=== PATIENT | female | born 1995 | race Hispanic/Latino ===

== ENCOUNTER 2019-03-31 19:17 | Emergency (ER) | payer BC ==
[2019-03-31 20:08] LABS: Absolute Lymphocytes (CBC) 2.6 K/uL (0.7-4.9); Basophils % 0.3 % (0-1.3); Hematocrit 37.5 % (36.0-45.0); Lymphocytes % 24.3 % (15.3-44.8); MPV 8.4 fL (7.6-11.3); RBC Red Blood Cell Count 4.65 M/uL (3.86-4.86)
[2019-03-31 20:12] LABS: Urine Blood 1+ (NEG); Urine Glucose NEGATIVE (NEG); Urine Protein NEGATIVE (NEG); Urine Specific Gravity 1.015 (1.005-1.030)
[2019-03-31 20:45] LABS: BUN Blood Urea Nitrogen 11 mg/dL (7-18); Bicarbonate 24 mmol/L (21-32); Glucose Level 99 mg/dL (74-106); HCG, Quantitative 31316 mIU/mL (1-3); Potassium 3.7 mmol/L (3.5-5.1); Sodium Level 138 mmol/L (136-145)
--- NOTE | 2019-03-31 20:49 | ER ---
Nurse's Notes [facility] Name: Leah Izquierdo Age: 24 yrs Sex: Female : 1995 Arrival Date: 03/31/2019 Time: 19:18 Bed 28 Private MD: Diagnosis: Less than 8 weeks gestation of ;Other ovarian cysts Presentation: 03/31 19:30 Presenting complaint: Mother states: "She's 7 weeks and she has a lot of back aj1 pain that goes around to the front." Reports LLQ pain and left low back pain for the past week that has gotten progressively worse. Denies vaginal bleeding or discharge. States that she has some spotting one week ago but it has resolved. She was seen by Dr. Davidson and was told it was normal. Reports diarrhea yesterday but none today. Denies vomiting. Transition of care: patient was not received from another setting of care. Onset of symptoms was March 2019. Risk Assessment: Do you want to hurt yourself or someone else? Patient reports no desire to harm self or others. Initial Sepsis Screen: Does the patient meet any 2 criteria? No. Patient's initial sepsis screen is negative. Does the patient have a suspected source of infection? No. Patient's initial sepsis screen is negative. Care prior to arrival: None. 19:30 Method Of Arrival: Ambulatory aj1 19:30 Acuity: KILO 3 aj1 Triage Assessment: 19:33 General: Appears in no apparent distress. comfortable, Behavior is calm, cooperative, aj1 appropriate for age. Pain: Complains of pain in left low back and left lower quadrant Pain currently is 7 out of 10 on a pain scale. at worst was 9 out of 10 on a pain scale. Neuro: Level of Consciousness is awake, alert, obeys commands. Cardiovascular: Patient's skin is warm and dry. Respiratory: Airway is patent Respiratory effort is even, unlabored, Respiratory pattern is regular, symmetrical. Musculoskeletal: Range of motion: intact in all extremities. 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 - Social history:: Smoking status: Patient/guardian denies using tobacco. - Ebola Screening: : Patient denies travel to an Ebola-affected area in the 21 days before illness onset. Screenin:45 Abuse screen: Denies threats or abuse. Denies injuries from another. Nutritional rv screening: No deficits noted. Tuberculosis screening: No symptoms or risk factors identified. Fall Risk None identified. Assessment: 20:44 General: Appears in no apparent distress. comfortable, Behavior is calm, cooperative. rv Pain: Complains of pain in left low back. Neuro: Level of Consciousness is awake, alert, obeys commands, Oriented to person, place, time, situation. Cardiovascular: Patient's skin is warm and dry. Respiratory: Airway is patent. GI: No signs and/or symptoms were reported involving the gastrointestinal system. : No signs and/or symptoms were reported regarding the genitourinary system. EENT: No signs and/or symptoms were reported regarding the EENT system. Derm: Skin is intact. Musculoskeletal: No signs and/or symptoms reported regarding the musculoskeletal system. 21:01 Reassessment: DANILO TALKED TO THE PATIENT AND THE FAMILY AT BEDSIDE, EXPLAINED THE rv RESULTS AND PLAN OF CARE AFTER DISCHARGE. FAMILY DEMANDED TO TALKED TO THE DOCTOR. 22:00 Reassessment: DR MISTRY TALKED TO THE PATIENT AND RELATIVES AT BEDSIDE. DECIDED TO rv RUN URINE MICROSCOPY AND GIVE PATIENT A BOLUS OF FLUID. PATIENT AGREED. 22:35 Reassessment: Reassessment: URINE MICROSCOPY CAME BACK NORMAL. DR MISTRY DISCHARGED rv PATIENT AFTER EXPLAINING THE RESULT. Vital Signs: 19:33 BP 119 / 70; Pulse 79; Resp 18; Temp 98.9; Pulse Ox 98% on R/A; Height 5 ft. 5 in. (166 aj1 cm) (R); Pain 7/10; 21:06 BP 122 / 78; Pulse 79; Resp 15; Pulse Ox 100% on R/A; rv ED Course: 19:18 Patient arrived in ED. am2 19:32 Triage completed. aj1 19:33 Danilo Kingston FNP-C [facility]. kb 19:33 Antoine Rios MD is Attending Physician. kb 19:33 Arm band placed on Patient placed in an exam room. aj1 19:50 Inserted saline lock: 20 gauge in left antecubital area, using aseptic technique. Blood rv collected. 19:53 Dipak Lea, RN is Primary Nurse. rv 20:46 Patient has correct armband on for positive identification. Bed in low position. Call rv light in reach. Side rails up X 1. Pulse ox on. NIBP on. 21:36 Attending Physician role handed off by Antoine Rios MD [facility] 21:36 Mark Mistry MD is Attending Physician. messi 22:36 No provider procedures requiring assistance completed. IV discontinued, intact, rv bleeding controlled, No redness/swelling at site. Administered Medications: 22:02 Drug: NS 0.9% 1000 ml Route: IV; Rate: 1 bolus; Site: left antecubital; rv 22:34 Follow up: IV Status: Completed infusion rv Outcome: 20:49 Discharge ordered by . kb 22:36 Discharged to home ambulatory, with family. rv 22:36 Condition: good 22:36 Discharge instructions given to patient, family, friend, Instructed on Demonstrated understanding of instructions, follow-up care. 22:37 Patient left the ED. rv Signatures: Danilo Kingston, TERRAZZO MECHANIC-C TERRAZZO MECHANIC-Huong Johnson, RN RN aj1 Mark Mistry MD MD cha Moreno, Amanda am2 Dipak Lea, RN RN rv Corrections: (The following items were deleted from the chart) 21:06 21:04 BP 117 / 68; Pulse 91bpm; Resp 15bpm; Pulse Ox 97% RA; rv rv
--- NOTE | 2019-03-31 20:50 | RAD REPORT ---
EXAM DESCRIPTION: US - Transvaginal Study Probe - 03/31/2019 8:41 pm CLINICAL HISTORY: ABD CRAMPING, COMPARISON: No comparisons FINDINGS: A single gestational sac is seen within the uterus. The shape of the sac is within normal limits for gestational age. Within the sac is a single pole with crown-rump length of 8 mm, cor relating to estimated gestational age of 6 weeks 5 days. Estimated date of delivery is 11/19/2019. Heart rate is 139 BPM.. The placenta is not yet developed due to early gestational age. The maternal adnexa and ovaries are within normal limits. Normal Doppler blood flow was demonstrated to both ovaries. IMPRESSION: Single live early intrauterine gestation with estimated gestational age of 6 weeks 5 day s, MELODY 11/19/2019. No unusual or unexpected finding.
--- NOTE | 2019-03-31 20:50 | EDPHYS ---
Physician Documentation [facility] Name: Leah Izquierdo Age: 24 yrs Sex: Female : 1995 Arrival Date: 03/31/2019 Time: 19:18 Bed 28 Private MD: ED Physician Mark Magdaleno HPI: 03/31 20:47 This 24 yrs old Female presents to ER via Ambulatory with complaints of Back kb Pain - 7 wks preg. 20:47 The patient presents to the emergency department with abdominal pain, of the left lower kb quadrant. The estimated gestational age is 7 weeks. course: care: private OB physician, Dr. chandra. Previous pregnancies: in previous pregnancies patient has had. Associated signs and symptoms: Pertinent positives: abdominal pain, Pertinent negatives: vaginal bleeding. The patient has not experienced similar symptoms in the past. The patient has not recently seen a physician. OUTSIDE PARTS SALESMAN: 19:33 LMP 02/05/2019 aj1 20:47 2, 0, Living 1 kb Historical: - Allergies: 19:33 No Known Allergies; aj1 - Home Meds: 19:33 Vitamin Oral tab 1 tab once daily [Active]; aj1 - PMHx: 19:33 None; aj1 - PSHx: 19:33 ; aj1 - Immunization history:: Flu vaccine status is unknown. - Social history:: Smoking status: Patient/guardian denies using tobacco. - Ebola Screening: : Patient denies travel to an Ebola-affected area in the 21 days before illness onset. ROS: 20:46 Constitutional: Negative for fever, chills, and weight loss, Neck: Negative for injury, kb pain, and swelling, Cardiovascular: Negative for chest pain, palpitations, and edema, Respiratory: Negative for shortness of breath, cough, wheezing, and pleuritic chest pain, Back: Negative for injury and pain, : Negative for injury, bleeding, discharge, and swelling, MS/Extremity: Negative for injury and deformity, Skin: Negative for injury, rash, and discoloration, Neuro: Negative for headache, weakness, numbness, tingling, and seizure. 20:46 Abdomen/GI: Positive for abdominal pain. Exam: 20:46 Constitutional: This is a well developed, well nourished patient who is awake, alert, kb and in no acute distress. Head/Face: Normocephalic, atraumatic. Neck: Trachea midline, no thyromegaly or masses palpated, and no cervical lymphadenopathy. Supple, full range of motion without nuchal rigidity, or vertebral point tenderness. No Meningismus. Chest/axilla: Normal chest wall appearance and motion. Nontender with no deformity. No lesions are appreciated. Cardiovascular: Regular rate and rhythm with a normal S1 and S2. No gallops, murmurs, or rubs. Normal PMI, no JVD. No pulse deficits. Respiratory: Lungs have equal breath sounds bilaterally, clear to auscultation and percussion. No rales, rhonchi or wheezes noted. No increased work of breathing, no retractions or nasal flaring. Back: No spinal tenderness. No costovertebral tenderness. Full range of motion. Skin: Warm, dry with normal turgor. Normal color with no rashes, no lesions, and no evidence of cellulitis. MS/ Extremity: Pulses equal, no cyanosis. Neurovascular intact. Full, normal range of motion. Neuro: Awake and alert, GCS 15, oriented to person, place, time, and situation. Cranial nerves II-XII grossly intact. Motor strength 5/5 in all extremities. Sensory grossly intact. Cerebellar exam normal. Normal gait. 20:46 Abdomen/GI: Inspection: abdomen appears normal, Bowel sounds: normal, in all quadrants, Palpation: soft, in all quadrants, mild abdominal tenderness, in the left lower quadrant. Vital Signs: 19:33 BP 119 / 70; Pulse 79; Resp 18; Temp 98.9; Pulse Ox 98% on R/A; Height 5 ft. 5 in. (166 aj1 cm) (R); Pain 7/10; 21:06 BP 122 / 78; Pulse 79; Resp 15; Pulse Ox 100% on R/A; rv MDM: 19:35 Patient medically screened. kb 20:46 Data reviewed: vital signs, nurses notes. Data interpreted: Pulse oximetry: on room air kb is 98 %. Interpretation: normal. Counseling: I had a detailed discussion with the patient and/or guardian regarding: the historical points, exam findings, and any diagnostic results supporting the discharge/admit diagnosis, lab results, radiology results, the need for outpatient follow up, an OB/Gyne specialist, to return to the emergency department if symptoms worsen or persist or if there are any questions or concerns that arise at home. 03/31 19:36 Order name: Quantitative Hcg 03/31 19:36 Order name: Abo/rh Typing 03/31 19:36 Order name: Basic Metabolic Panel 03/31 19:36 Order name: CBC with Diff 03/31 20:02 Order name: Urine Dipstick--Ancillary (enter results) [facility] 03/31 20:10 Order name: CBC with Automated Diff; Complete Time: 20:07 EDPA 03/31 20:12 Order name: Urine --Ancillary (enter results) [facility] 03/31 20:13 Order name: Urine Dipstick-Ancillary; Complete Time: 20:10 [facility] 03/31 20:38 Order name: ABO/RH typing; Complete Time: 20:37 [facility] 03/31 20:46 Order name: Basic Metabolic Panel; Complete Time: 20:42 EDPA 03/31 20:46 Order name: HCG, Quantitative; Complete Time: 20:42 [facility] 03/31 21:48 Order name: Urine Microscopic Only; Complete Time: 22:16 [facility] 03/31 22:18 Order name: Urine Culture [facility] 03/31 19:36 Order name: Urine Dipstick-Ancillary (obtain specimen); Complete Time: 20:03 03/31 19:36 Order name: Urine Test (obtain specimen); Complete Time: 20:03 03/31 19:36 Order name: IV Saline Lock; Complete Time: 20:03 03/31 19:36 Order name: Labs collected and sent; Complete Time: 20:03 03/31 19:36 Order name: NPO; Complete Time: 19:38 03/31 20:09 Order name: US Transvaginal Study (Probe) 03/31 20:56 Order name: US; Complete Time: 20:55 EDMS Administered Medications: 22:02 Drug: NS 0.9% 1000 ml Route: IV; Rate: 1 bolus; Site: left antecubital; rv 22:34 Follow up: IV Status: Completed infusion rv Disposition: 04/01 08:05 Co-signature as Attending Physician, Mark LEES I agree with the assessment and kdr plan of care. Disposition: 03/31/19 20:49 Discharged to Home. Impression: Less than 8 weeks gestation of , Other ovarian cysts. - Condition is Stable. - Discharge Instructions: First Trimester of , Wyus-pf-Abju, Ovarian Cyst, Fvlr-[id number]-Omti. - Medication Reconciliation Form, Thank You Letter, Antibiotic Education, Prescription Opioid Use form. - Follow up: Emergency Department; When: As needed; Reason: Worsening of condition. Follow up: Private Physician; When: 2 - 3 days; Reason: Recheck today's complaints, Continuance of care, Re-evaluation by your physician. Signatures: Dispatcher [employer] EDMS Dede Kingston, JOINT FINISHER-C JOINT FINISHER-CkHuong Stock, RN RN aj1 Mark Magdaleno MD MD cha Rittger, Kevin, MD MD kdr Vicente, Ronaldo RN RN rv Corrections: (The following items were deleted from the chart) 03/31 22:37 20:49 03/31/2019 20:49 Discharged to Home. Impression: Less than 8 weeks gestation of rv ; Other ovarian cysts. Condition is Stable. Forms are Medication Reconciliation Form, Thank You Letter, Antibiotic Education, Prescription Opioid Use. Follow up: Emergency Department; When: As needed; Reason: Worsening of condition. Follow up: Private Physician; When: 2 - 3 days; Reason: Recheck today's complaints, Continuance of care, Re-evaluation by your physician. kb
[2019-03-31] MEDS ORDERED: NA CHLORIDE 0.9% 1,000 ML ONE (21:59)
[2019-03-31 22:15] LABS: Urine Bacteria 20-50 /HPF (<20); Urine Culture Reflex Order REFLEXED; Urine RBC <5 /HPF (NONE SEEN)
== END 2019-03-31 22:37 | disposition home or self-care (01) ==
LOC: ER 19:17
DX: O26.891 Other specified pregnancy related conditions, first trimester (principal); N83.299 Other ovarian cyst, unspecified side
CPT/HCPCS: 87088; 85025; 87086; 80048; 36415; 86900; 86901; 84702; 76830; 96360; 99284; J7030; 81003; 81015

== ENCOUNTER 2019-11-07 04:16 | Inpatient (IN) | payer BC ==
--- NOTE | 2019-11-03 09:34 | PREOPHP ---
Date of Admission: 11/07/2019 History Of Present Illness: Leah Gee is a 23-year-old 2, para 1, for repeat cesarea n section. Infection, blood loss, anesthetic complications, injury to bladder/bowel/ureter, postoper ative complications, clots in legs, and pneumonia discussed. Patient knows fully well, this does not constitute all the possible problems that could occur with surgery during or after, knows with each surgery the risks complications is higher. Family History: Mother with breast cancer. This has been discussed Medications: Patient has been taking vitamins and iron. Social History: Does not smoke. Physical Examination: HEENT: Clear. Pupils are equal, round, and reactive to light and accommodation. Conjunctivae well perfused. No oral, lingual, or buccal lesions. Chest and Lungs: Clear. Heart: Without murmurs, thrills, heaves, or rubs. Breasts: Not examined today. Abdomen: Term size. Baby is vertex. Probably in the 8-pound range. Extremities: Clear without edema, cyanosis, or clubbing. Pelvic: Patient declines pelvic exam today. She knows to do her movement counts and if the baby does not move properly she is to go to Labor and Delivery before Thursday morning. She will be sent over for COVID testing Thursday and her other lab arnold dies and then we will do the surgery on Thursday. Full discussion with patient and her friend who is with her as a very good product support consultant. DANK/SADIA Voice ID: [id number]
[2019-11-06 11:07] LABS: Urine Appearance CLOUDY; Urine Bilirubin NEGATIVE (NEG); Urine Blood NEGATIVE (NEG); Urine Color YELLOW; Urine Glucose 1+ (NEG); Urine Protein NEGATIVE (NEG); Urine Specific Gravity 1.015 (1.005-1.030); Urine pH 6.5 (5.0-7.0)
[2019-11-06 11:08] LABS: Absolute Lymphocytes (CBC) 1.6 K/uL (0.7-4.9); Basophils % 0.2 % (0-1.3); Lymphocytes % 19.9 % (15.3-44.8); MPV 8.2 fL (7.6-11.3)
[2019-11-06 13:19] LABS: Urine Microscopic Reflex ORDER UMIC
[2019-11-06 13:23] LABS: Urine Bacteria >50 /HPF (<20); Urine Culture Reflex Order REFLEXED; Urine RBC <5 /HPF (NONE SEEN)
[2019-11-07 04:16] LABS: RPR (Rapid Plasma Reagin) NON-REACT (NON-REACT)
--- OUTSIDE RECORDS SUMMARY | 2019-11-07 04:17 | XMS REPORT ---
:1995 Author Organization [facility] t Address [address] [place] [id number] Care Team Providers Name Role Phone Unavailable Unavailable Unavailable Problems This patient has no known problems. Allergies, Adverse Reactions, Alerts This patient has no known allergies or adverse reactions. Medications This patient has no known medications.
[2019-11-07] MEDS ORDERED: Ringers Lactate 1,000 ML IV PRN (04:21)
[2019-11-07] MEDS ORDERED: NA CIT/CITRIC AC 30 ML ORAL UDC PO ONE (04:28)
[2019-11-07] MEDS ORDERED: Ringers Lactate 1,000 ML IV SCH (05:00)
[2019-11-07] MEDS ORDERED: CEFAZOLIN 2 GM in NA CHLORIDE 0.9% 100 ML IVPB SCH (05:00)
[2019-11-07] MEDS ORDERED: METOCLOPRAMIDE 10 MG/2mL INJ IV SCH (05:00)
[2019-11-07 05:10] VITALS: BMI 36.8
[2019-11-07] MEDS ORDERED: FAMOTIDINE 20 MG/2 ML VIAL IV ONE (07:00)
[2019-11-07] MEDS ORDERED: METHYLERGONOVINE 0.2MG/ML AMP IM ONE ×2 (07:02→15:52)
[2019-11-07] MEDS ORDERED: CEFAZOLIN/SWI 2gm 2 GM/20 ML SYR ONE (07:03)
[2019-11-07] MEDS ORDERED: CEFAZOLIN SODIUM 1 GM/VIAL ONE (07:04)
[2019-11-07] MEDS ORDERED: LIDOCAINE 1% MPF 5 ML VIAL ONE (07:38)
[2019-11-07] MEDS ORDERED: OXYTOCIN 10 UNIT/ML ML IV ONE (07:38)
[2019-11-07] MEDS ORDERED: MORPHINE SULFATE/PF 1 MG/ML (10 ML AMP) ONE (07:38)
[2019-11-07] MEDS ORDERED: BUPIVACAINE 0.75% (PF) 2 ML SP ONE (07:38)
--- NOTE | 2019-11-07 07:49 | PN ---
24-year-old 2, para 1, for a repeat section. Vital signs are all stable. Baby look s good. Hematocrit is 39. Awaiting Anesthesia evaluation and we are clear for surgery. DANK/SADIA Voice ID: [id number] Report ID: [id number]
[2019-11-07] MEDS ORDERED: KETOROLAC 30 MG/ML INJ IM PRN (08:34)
[2019-11-07] MEDS ORDERED: ACETAMINOPHEN 500 MG TAB PO PRN ×2 (08:34)
[2019-11-07] MEDS ORDERED: ONDANSETRON 4 MG/2 ML VIAL IV PRN (08:34)
[2019-11-07] MEDS ORDERED: ONDANSETRON 4 MG (ODT) TAB PO PRN (08:34)
[2019-11-07] MEDS ORDERED: BISACODYL 10 MG RECTAL SUPP PR PRN (08:34)
[2019-11-07] MEDS ORDERED: DIPHENHYDRAMINE 25 MG TAB/CAP PO PRN (08:34)
--- NOTE | 2019-11-07 08:58 | OP ---
Surgeon: Chilo Davidson MD Indications: A 24-year-old, 2, para 1, previous , 39 weeks 1 day, for repeat shu an section. Infection, blood loss, anesthetic complications; injury to bladder, bowel, and ureter; p ostoperative complications, clots in legs, and pneumonia discussed. Patient knows fully well this do es not constitute all the possible problems that could occur during or following surgery, and knows w ith each surgery, if there is an increased risk for complications. Anesthesia: Spinal block anesthesia by Dr. Pacheco. Sign Wirer Surgeon: Dr. Badillo. Description Of Procedure: After prepping and draping, time-out was performed. Pfannenstiel incision was created over previous incision site. The incision was carried to the fascia. The fascia was in cised and incision carried transversely bilaterally. Anterior and posterior fascial planes was devel oped with both blunt and sharp dissection. Rectus muscles were . Peritoneal defect was enc ountered and entered. Low transverse uterine incision was made. The lower uterine segment was very thin. A 9 pounds, 7 ounces male infant was delivered through the incision without difficulties. Apg ars 9 and 9. Cord blood specimen was obtained. Placenta was removed manually. Uterus cleared of cl ot and blood and exteriorized. Cervical os dilated with ring clamp. The uterus closed with a runnin g lock stitch of 1 chromic followed by an imbricating stitch midline to the right angle for complete hemostasis. Estimated blood loss was 700 cc during the procedure. Gutters clear of clot and blood. Uterus was replaced in the peritoneal cavity. Inspection of suture line showed no further bleeding. The muscles were reapproximated with 0 Vicryl 3 interrupted sutures. Fascia was closed with 1 Vicr yl running from either angle to the midline. Subcutaneous tissue closed with 3-0 plain. Metal staple s placed. The patient had been given 2 g of Ancef. Tolerated all procedures well. Transferred back to her room in good condition. Final Diagnoses: At term intrauterine , 39 weeks 1 day, repeat section. Spinal bl ock anesthesia. Thin lower uterine segment. DANK/SADIA Voice ID: [id number] Report ID: [id number]
[2019-11-07] MEDS ORDERED: OXYTOCIN/LR 20 UNIT/1,000 ML BAG IV SCH (09:00)
[2019-11-07] MEDS ORDERED: PRENATAL VITAMIN PO ONE (09:00)
[2019-11-07] MEDS ORDERED: Ringers Lactate 1,000 ML IV ONE (09:42)
[2019-11-07] MEDS: KETOROLAC 30 MG/ML INJ IV PRN ×2 (12:06→12:15)
[2019-11-07] MEDS: D5LR 1,000 ML with OXYTOCIN 20 UNIT IV SCH ×2 (12:06)
[2019-11-07] MEDS ORDERED: CEFAZOLIN/SWI 1gm 1 GM/10 ML SYR IV SCH (15:00)
[2019-11-08] MEDS: KETOROLAC 30 MG/ML INJ IV PRN
[2019-11-08] MEDS: D5LR 1,000 ML with OXYTOCIN 20 UNIT IV SCH ×2 (04:30)
[2019-11-08] MEDS ORDERED: D5LR 0 ML IV ONE (04:31)
[2019-11-08] MEDS ORDERED: OXYTOCIN 10 UNIT/ML ML IV ONE (04:31)
[2019-11-08] MEDS: Oxycodone HCl/Acetaminophen 1 TAB TAB PO PRN ×4 (07:13→16:14)
--- NOTE | 2019-11-08 07:20 | PN ---
Postoperatively, has done quite well. H and H with expected change. Lochia is normal. Vital signs are stable. We will discontinue Judd and IV this morning and start her ambulating. If all goes wel l, she can go home tomorrow. No complaints or problems reported. Tdap has been offered during the p regnancy and will be offered again before she leaves. No post spinal block problems. DANK/SADIA Voice ID: [id number] Report ID: [id number]
[2019-11-08] MEDS ORDERED: MAGNESIUM HYDROXIDE 8% 30 ML PO PRN (08:34)
[2019-11-08 19:08] LABS: HBsAG Nonreactive (Nonreactive)
[2019-11-08] MEDS: IBUPROFEN 600 MG TAB PO PRN (20:20)
[2019-11-09] MEDS: Oxycodone HCl/Acetaminophen 1 TAB TAB PO PRN
[2019-11-09] MEDS: IBUPROFEN 600 MG TAB PO PRN (04:45)
--- NOTE | 2019-11-09 08:04 | DS ---
Hospital Course: A 24-year-old 2, para 1, 39 weeks 1 day, underwent repeat section after thorough counseling concerning procedures and possible complications including infection; blood loss; anesthetic complications; injury to bladder, bowel, or ureter; postoperative complications; cl ots in legs; and pneumonia. Patient knows fully well this does not constitute all the possible probl ems that could occur during or following surgery. Was delivered of a 9-pound 7-ounce male , Ap gars 9 and 9. Baby was noted to have a vascular lesion in the groin area, which is thought to be jus t a hemangioma. Baby has been apparently referred to [facility] and the patient will follow up with the baby there. Otherwise, the baby has done quite well as well as the mother. She had spinal block anesthesia, 700 cc blood loss, was noted to have a thin lower uterine segment. Rh positive, i mmune to rubella, negative beta strep screen. Is dismissed with Motrin 600 mg, but she is alternatin g Percocet and Motrin, so we will give her some tramadol to take home too, that she can do the same t josue at home and alternate doses. H and H with no significant change. Patient has no complaints or problems. Final Diagnoses: Term intrauterine 39 weeks 1 day; repeat section; spinal block a nesthesia; thin lower uterine segment; baby with vascular lesion, probably hemangioma in the groin ar sylwia; and followup at [facility]. DANK/SADIA Voice ID: [id number] Report ID: [id number]
[2019-11-09 10:29] VITALS: BP 121/64; TEMP 97.9
== END 2019-11-09 10:00 | disposition home or self-care (01) | DRG 788 ==
LOC: 2ND-WC 04:16
PROVIDERS: ADMIT Specialist; ATTEND Specialist
PROC: 10D00Z1 Extraction of Products of Conception, Low, Open Approach (ICD-10-PCS; principal; 2019-11-09)
DX: O34.219 Maternal care for unspecified type scar from previous cesarean delivery (principal); Z3A.39 39 weeks gestation of pregnancy; Z37.0 Single live birth
CPT/HCPCS: 36415; 81003; 81015; 85014; 85025; 86592; 86850; 86900; 86901; 87086; 87088; 87340; 88307; J0690; J2210; J2405; J2590; J2765; J7120; J7121

== ENCOUNTER 2020-03-03 12:29 | Emergency (ER) | payer BC ==
--- OUTSIDE RECORDS SUMMARY | 2020-03-03 12:31 | XMS REPORT | Continuity of Care Document ---
:1995 Author Organization [facility] t Address [address] [place] [id number] Care Team Providers Name Role Phone Unavailable Unavailable Unavailable Problems This patient has no known problems. Allergies, Adverse Reactions, Alerts This patient has no known allergies or adverse reactions. Medications This patient has no known medications. Procedures This patient has no known procedures. Results This patient has no known results.
[2020-03-03 13:54] LABS: Urine Blood 3+ (NEG); Urine Glucose NEGATIVE (NEG); Urine Protein 1+ (NEG); Urine Specific Gravity 1.025 (1.005-1.030); Urine pH 5.5 (5.0-7.0)
[2020-03-03 14:03] LABS: Absolute Lymphocytes (CBC) 1.9 K/uL (0.7-4.9); Basophils % 0.3 % (0-1.3); Hematocrit 33.1 % (36.0-45.0); Lymphocytes % 32.3 % (15.3-44.8); MPV 8.5 fL (7.6-11.3); RBC Red Blood Cell Count 3.96 M/uL (3.86-4.86)
[2020-03-03 14:21] LABS: ALT/SGPT 24 U/L (12-78); AST/SGOT 12 U/L (15-37); Albumin 3.7 g/dL (3.4-5.0); Alkaline Phosphatase 74 U/L (45-117); BUN Blood Urea Nitrogen 13 mg/dL (7-18); Bicarbonate 27 mmol/L (21-32); Bilirubin Direct < 0.1 mg/dL (0-0.2); Bilirubin Total 0.3 mg/dL (0.2-1.0); Glucose Level 94 mg/dL (74-106); Lipase 93 U/L (73-393); Potassium 3.7 mmol/L (3.5-5.1); Protein, Total 7.9 g/dL (6.4-8.2); Sodium Level 142 mmol/L (136-145)
--- NOTE | 2020-03-03 15:33 | RAD REPORT ---
EXAM DESCRIPTION: CT - Abdomen Pelvis W Contrast - 03/03/2020 3:00 pm CLINICAL HISTORY: Abdominal pain COMPARISON: none. TECHNIQUE: Computed axial tomography of the abdomen pelvis was obtained. 100 cc Isovue-300 was admin istered intravenously. Due to machine malfunction the patient was transferred to the other CT suite. 60 cc Isovue-300 was then administered intravenously. Oral contrast was not requested which limits evaluation of bowel. All CT scans are performed using dose optimization technique as appropriate and may include automated exposure control or mA/KV adjustment according to patient size. FINDINGS: The liver, spleen, pancreas, adrenal and kidneys appear unremarkable. There is no evidence of diverticulitis. Tiny umbilical hernia An IUD is present within the vagina. IMPRESSION: An IUD is present within the vagina.
--- NOTE | 2020-03-03 16:02 | EDPHYS ---
Physician Documentation [facility] Name: Leah Izquierdo Age: 24 yrs Sex: Female : 1995 Arrival Date: 03/03/2020 Time: 12:31 Bed 17 Private MD: Chilo Davdison B ED Physician Mark Magdaleno HPI: 03/03 13:26 This 24 yrs old Female presents to ER via Ambulatory with complaints of pm1 Abdominal Cramping, IUD Problem. 13:26 The patient presents to the emergency department with abdominal pain, of the suprapubic pm1 area, that started 1 month, described as crampy, vaginal bleeding, that is light, with clots. Associated signs and symptoms: Pertinent negatives: dysuria, fever, shortness of breath, vaginal discharge. IUD placed by Dr. Davidson 1 month ago with follow up due to abdominal cramping and bleeding with IUD. 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 - Social history:: Smoking status: Patient denies any tobacco usage or history of. ROS: 13:26 Constitutional: Negative for fever, chills, and weight loss, Neck: Negative for injury, pm1 pain, and swelling, Cardiovascular: Negative for chest pain, palpitations, and edema, Respiratory: Negative for shortness of breath, cough, wheezing, and pleuritic chest pain. 13:26 Back: Negative for injury and pain. 13:26 MS/Extremity: Negative for injury and deformity, Skin: Negative for injury, rash, and discoloration, Neuro: Negative for headache, weakness, numbness, tingling, and seizure. 13:26 Abdomen/GI: Positive for abdominal pain, of the suprapubic area, Negative for nausea, vomiting, and diarrhea. 13:26 : Positive for vaginal bleeding, Negative for urinary symptoms. Exam: 13:26 Constitutional: This is a well developed, well nourished patient who is awake, alert, pm1 and in no acute distress. Head/Face: Normocephalic, atraumatic. Neck: Trachea midline, no thyromegaly or masses palpated, and no cervical lymphadenopathy. Supple, full range of motion without nuchal rigidity, or vertebral point tenderness. No Meningismus. Chest/axilla: Normal chest wall appearance and motion. Nontender with no deformity. No lesions are appreciated. 13:26 Respiratory: Lungs have equal breath sounds bilaterally, clear to auscultation and percussion. No rales, rhonchi or wheezes noted. No increased work of breathing, no retractions or nasal flaring. 13:26 Back: No spinal tenderness. No costovertebral tenderness. Full range of motion. Skin: Warm, dry with normal turgor. Normal color with no rashes, no lesions, and no evidence of cellulitis. MS/ Extremity: Pulses equal, no cyanosis. Neurovascular intact. Full, normal range of motion. 13:26 Cardiovascular: Exam negative for acute changes, Rate: normal, Rhythm: regular, Pulses: no pulse deficits are appreciated, Edema: is not appreciated. 13:26 Abdomen/GI: Exam negative for acute changes, Inspection: abdomen appears normal, Palpation: abdomen is soft and non-tender. 13:26 Neuro: Exam negative for acute changes, Orientation: is normal, Motor: is normal, moves all fours. Vital Signs: 12:44 BP 108 / 66; Pulse 74; Resp 12 S; Temp 98.6(O); Pulse Ox 98% on R/A; Weight 83.01 kg jd3 (R); Height 5 ft. 5 in. (166 cm) (R); Pain 9/10; 15:00 BP 107 / 58; Pulse 61; Resp 17 S; Pulse Ox 100% on R/A; ca1 15:57 BP 100 / 65; Pulse 61; Resp 18 S; Pulse Ox 100% on R/A; ca1 12:44 Body Mass Index 30.12 (83.01 kg, 166 cm) jd3 Procedures: 15:58 Performed IUD was present about 1 inch from the entrance of the vagina. It was removed pm1 from the vagina. Patient tolerated procedure well. Xiomara MENCHACA present as partition notcher. MDM: 13:05 Patient medically screened. pm1 15:58 Data reviewed: vital signs. Data interpreted: Pulse oximetry: on room air is 100 %. pm1 Interpretation: normal. Counseling: I had a detailed discussion with the patient and/or guardian regarding: the historical points, exam findings, and any diagnostic results supporting the discharge/admit diagnosis, lab results, radiology results, the need for outpatient follow up, to return to the emergency department if symptoms worsen or persist or if there are any questions or concerns that arise at home. 03/03 13:19 Order name: Basic Metabolic Panel; Complete Time: 14:23 pm1 03/03 13:19 Order name: CBC with Diff; Complete Time: 14:23 pm1 03/03 13:19 Order name: Hepatic Function; Complete Time: 14:23 pm1 03/03 13:19 Order name: Lipase; Complete Time: 14:23 pm1 03/03 13:33 Order name: Urine Dipstick--Ancillary (enter results); Complete Time: 14:23 mt 03/03 13:33 Order name: Urine --Ancillary (enter results); Complete Time: 14:23 mt 03/03 13:19 Order name: IV Saline Lock; Complete Time: 13:39 pm1 03/03 13:19 Order name: Labs collected and sent; Complete Time: 13:39 pm1 03/03 13:19 Order name: Urine Dipstick-Ancillary (obtain specimen); Complete Time: 13:32 pm1 03/03 13:19 Order name: Urine Test (obtain specimen); Complete Time: 13:32 pm1 03/03 13:20 Order name: CT Abd/Pelvis - IV Contrast Only; Complete Time: 15:40 pm1 Administered Medications: No medications were administered Disposition: 03/04 09:01 Co-signature as Attending Physician, Mark Magdaleno MD I agree with the assessment and messi plan of care. Disposition: 03/03/20 16:02 Discharged to Home. Impression: Foreign body in vulva and vagina. - Condition is Stable. - Discharge Instructions: Vaginal Foreign Body. - Medication Reconciliation Form, Thank You Letter, Antibiotic Education, Prescription Opioid Use form. - Follow up: Emergency Department; When: As needed; Reason: Worsening of condition. Follow up: Chilo Davidson MD; When: 2 - 3 days; Reason: Recheck today's complaints, Continuance of care, Re-evaluation by your physician. - Problem is new. - Symptoms have improved. Signatures: Dispatcher [employer] EDMS Mark Magdaleno MD MD cha Marinas, Patrick, COMMUNITY DEVELOPMENT OFFICER COMMUNITY DEVELOPMENT OFFICER pm1 Cayetano Roblero, RN RN jd3 Xiomara Seay RN RN ca1 Corrections: (The following items were deleted from the chart) 03/03 16:34 16:02 03/03/2020 16:02 Discharged to Home. Impression: Foreign body in vulva and ca1 vagina. Condition is Stable. Forms are Medication Reconciliation Form, Thank You Letter, Antibiotic Education, Prescription Opioid Use. Follow up: Emergency Department; When: As needed; Reason: Worsening of condition. Follow up: Chilo Davidson; When: 2 - 3 days; Reason: Recheck today's complaints, Continuance of care, Re-evaluation by your physician. Problem is new. Symptoms have improved. pm1
--- NOTE | 2020-03-03 16:02 | ER ---
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 today the pain was so bad she could not stand. the OB doctor to her to come here.". Coronavirus screen: At this time, the client does not indicate any symptoms associated with coronavirus-19. Ebola Screen: Patient negative for fever greater than or equal to 101.5 degrees Fahrenheit, and additional compatible Ebola Virus Disease symptoms. Initial Sepsis Screen: Does the patient meet any 2 criteria? No. Patient's initial sepsis screen is negative. Does the patient have a suspected source of infection? No. Patient's initial sepsis screen is negative. Risk Assessment: Do you want to hurt yourself or someone else? Patient reports no desire to harm self or others. Onset of symptoms was March 03, 2020. 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 - Social history:: Smoking status: Patient denies any tobacco usage or history of. Screenin:10 Abuse screen: Denies threats or abuse. Denies injuries from another. Nutritional ca1 screening: No deficits noted. Tuberculosis screening: No symptoms or risk factors identified. Fall Risk None identified. Assessment: 13:10 General: Appears in no apparent distress. comfortable, Behavior is calm, cooperative, ca1 appropriate for age. Pain: Complains of pain in groin Quality of pain is described as "something is poking inside me" Pain began a month ago Aggravated by repositioning. Neuro: Level of Consciousness is awake, alert, obeys commands, Oriented to person, place, time, situation. Cardiovascular: Heart tones S1 S2 present Capillary refill < 3 seconds Patient's skin is warm and dry. Respiratory: Airway is patent Respiratory effort is even, unlabored, Respiratory pattern is regular, symmetrical, Breath sounds are clear bilaterally. GI: Abdomen is round non-distended, Bowel sounds present X 4 quads. Abd is soft and non tender X 4 quads. : Reports vaginal bleeding that is bright red, with clots, heavy flow since a month ago after IUD insertion. EENT: No signs and/or symptoms were reported regarding the EENT system. Derm: Skin is intact, is healthy with good turgor, Skin is pink, warm \\T\\ dry. Musculoskeletal: Circulation, motion, and sensation intact. Capillary refill < 3 seconds. 14:00 Reassessment: Patient appears in no apparent distress at this time. Patient and/or ca1 family updated on plan of care and expected duration. Pain level reassessed. Patient is alert, oriented x 3, equal unlabored respirations, skin warm/dry/pink. 15:00 Reassessment: Patient appears in no apparent distress at this time. Patient and/or ca1 family updated on plan of care and expected duration. Pain level reassessed. Patient is alert, oriented x 3, equal unlabored respirations, skin warm/dry/pink. 15:57 Reassessment: Patient appears in no apparent distress at this time. Patient and/or ca1 family updated on plan of care and expected duration. Pain level reassessed. Patient is alert, oriented x 3, equal unlabored respirations, skin warm/dry/pink. 16:33 Reassessment: Patient appears in no apparent distress at this time. Patient is alert, ca1 oriented x 3, equal unlabored respirations, skin warm/dry/pink. Vital Signs: 12:44 BP 108 / 66; Pulse 74; Resp 12 S; Temp 98.6(O); Pulse Ox 98% on R/A; Weight 83.01 kg jd3 (R); Height 5 ft. 5 in. (166 cm) (R); Pain 9/10; 15:00 BP 107 / 58; Pulse 61; Resp 17 S; Pulse Ox 100% on R/A; ca1 15:57 BP 100 / 65; Pulse 61; Resp 18 S; Pulse Ox 100% on R/A; ca1 12:44 Body Mass Index 30.12 (83.01 kg, 166 cm) jd3 ED Course: 12:31 Patient arrived in ED. ag5 12:34 Chilo Davidson MD is Private Physician. ag5 12:43 Triage completed. jd3 12:45 Arm band placed on. jd3 13:05 Francisco Yoon NP is PHCP. pm1 13:05 Mark Magdaleno MD is Attending Physician. pm1 13:10 Xiomara Seay RN is Primary Nurse. ca1 13:10 Patient has correct armband on for positive identification. Placed in gown. Bed in low ca1 position. Call light in reach. Side rails up X 1. Pulse ox on. NIBP on. Warm blanket given. 13:39 Initial lab(s) drawn, by fl, sent to lab. Inserted saline lock: 20 gauge in left ca1 antecubital area, using aseptic technique. Blood collected. 15:00 CT Abd/Pelvis - IV Contrast Only In Process Unspecified. EDMS 15:00 CT completed. Patient tolerated procedure well. Patient moved back from CT. bq 15:58 Assist provider with pelvic exam: Set up pelvic tray. Performed by Francisco Yoon NP ca1 Patient tolerated well. removal of IUD. 16:01 Chilo Davidson MD is Referral Physician. pm1 16:33 IV discontinued, intact, bleeding controlled, No redness/swelling at site. Pressure ca1 dressing applied. Administered Medications: No medications were administered Outcome: 16:02 Discharge ordered by . pm1 16:33 Discharged to home ambulatory, with friend. ca1 16:33 Condition: stable 16:33 Discharge instructions given to patient, family, Instructed on discharge instructions, follow up and referral plans. Demonstrated understanding of instructions, follow-up care. 16:34 Patient left the ED. ca1 Signatures: Dispatcher [employer] EDMS Sariahgeronimo Christine bq Francisco Yoon NP WELDING SPECIALIST pm1 Cayetano Roblero RN RN j Xiomara Seay RN RN ca1 [address] [place] ag5 Corrections: (The following items were deleted from the chart) 15:59 15:57 BP 107 / 58; Pulse 61bpm; Resp 18bpm; Spontaneous; Pulse Ox 100% RA; ca1 ca1 13:39 No provider procedures requiring assistance completed. ca1 ca1
== END 2020-03-03 16:34 | disposition home or self-care (01) ==
LOC: ER 12:29
DX: R10.2 Pelvic and perineal pain (principal); Z30.432 Encounter for removal of intrauterine contraceptive device
CPT/HCPCS: 85025; 80048; 36415; 81025; 80076; 81003; 83690; 74177; 99284; Q9967

== ENCOUNTER 2023-01-13 14:18 | Inpatient (IN) | payer OTHER ==
--- OUTSIDE RECORDS SUMMARY | 2023-01-13 14:23 | XMS REPORT | Continuity of Care Document ---
:1995 Author Organization [facility] t Address [address] [place] [address] Care Team Providers Name Role Phone CRYSTAL FITZPATRICK Primary Care Physician Unavailable SANDIE PADILLA Attending Clinician Unavailable Polly London Attending Clinician Unavailable JOHN DAIGLE Attending Clinician Unavailable MD JOHN DAIGLE Attending Clinician Unavailable SANDIE PADILLA Attending Clinician Unavailable SARAHI VU Attending Clinician Unavailable Doctor Unassigned, Grimes Attending Clinician Unavailable SANDIE PADILLA Admitting Clinician Unavailable JOHN DAIGLE Admitting Clinician Unavailable RICHARD VALVERDE ASHLEY Admitting Clinician Unavailable MD JOHN DAIGLE Admitting Clinician Unavailable Payers Payer Name Policy Type Policy Number Effective Date Expiration Date Lazaro CASTAÑEDA [id number] 2010 OPEN CHOICE PPO 00:00:00 [facility] - [id number] 2018 OUT OF STATE 00:00:00 Problems Condition Condition Condition Status Onset Resolution Last Treating Co mments Source Name Details Category Date Date Treatment Clinician Date Primary Primary Disease Active 2020-07 Overview: Meth skylar cancer of cancer of 2-20 Formattin s t upper upper 00:00: g of this Hospita outer outer 00 note l quadrant quadrant might be of left of left different female female from the breast breast original. 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 ethodi mutation mutation 2-20 st positive positive 00:00: Hospit a 00 l Preoperati Preoperati Disease Active 2020-07 M ethodi ve ve 2-20 st clearance clearance 00:00: Hosp nieves 00 l Carcinoma Carcinoma Disease Recurre [facility] of breast of breast nce 6-15 Luke s upper upper 00:00: Medical outer outer 00 Center quadrant, quadrant, left left Allergies, Adverse Reactions, Alerts Allergy Allergy Status Severity Reaction(s) Onset Inactive Treating Comm ents Source Name Type Date Date Clinician NO KNOWN Drug Active [facility] ALLERGIE Class ity of S [facility] NO KNOWN Allergy Active [facility] Family History Family Member Diagnosis Comments Start Date Stop Date Source Natural mother Cancer [facility] Social History Social Habit Start Date Stop Date Quantity Comments Source Gender identity 2021-06-26 Identifies as [facility] 10:52:14 female gender Hospital (finding) Sexual orientation [facility] History of Social 2022-09-21 2022-09-[address] function 00:00:00 00:00:00 Hospital Tobacco use and 2021-06-26 2021-06-26 Smokeless tobacco [facility] exposure 00:00:00 00:00:00 non-user Hospital Alcohol intake 2020-12-25 2020-12-25 [facility] Alcohol Comment 2020-12-24 2020-12-[address] [facility] 00:00:00 00:00:00 [facility] Sex Assigned At [address] [facility] 00:00:00 00:00:00 [facility] Smoking Status Start Date Stop Date Source Never smoked tobacco [facility] Medications Ordered Filled Start Stop Current Ordering Indication Dosage Frequency Signature Comments Components Source Medication Medication Date Date Medication? Clinician (SIG) Name Name ascorbic Yes 500mg QD Take 500 Meth skylar acid, 4-[address] vitamin C, 12:46: mouth Hospit a (VITAMIN C) 30 daily. l 500 MG tablet cetirizine Yes 10mg QD Take 10 mg M ethodi (ZyrTEC) 10 4-[address] MG tablet 12:46: daily. Hospit a 30 l ferrous 2021-0 Yes Take by Methodi sulfate 4-[address] (IRON ORAL) 12:46: Hospit a 30 l traMADoL 0 Yes 50mg Take [address] (ULTRAM) 50 6-15 tablet (50 [facility] mg tablet 00:00: mg total) Med ical 00 by mouth Center every 6 (six) hours as needed for up to 10 doses. Max Daily Amount: 200 mg Immunizations Ordered Immunization Filled Immunization Date Status Commen ts Source Name Name PFIZER COVID-19 MRNA 2020-10-20 Completed [facility] VACCINATION 00:00:00 Hospital PFIZER COVID-19 MRNA 2020-09-29 Completed [facility] VACCINATION 00:00:00 Hospital Vital Signs Vital Name Observation Time Observation Value Comments Source WEIGHT 2020-12-25 09:00:00 84.823 kg HEIGHT 2020-12-25 09:00:00 167.6 cm HEIGHT 2020-12-24 09:42:00 167.6 cm WEIGHT 2020-12-24 09:42:00 83.915 kg WEIGHT 2020-12-25 09:00:00 84.823 kg HEIGHT 2020-12-25 09:00:00 167.6 cm HEIGHT 2020-12-24 09:42:00 167.6 cm WEIGHT 2020-12-24 09:42:00 83.915 kg Procedures This patient has no known procedures. Plan of Care Planned Activity Planned Date Details Comments Source Future Scheduled 2023-03-[address] [facility] Test 00:00:00 (#1) [code = [facility] Influenza Vaccine (#1)] Future Scheduled 2022-12-29 Hepatitis C [facility] Test 11:10:29 screening (procedure) [code = 325087126] Future Scheduled 2022-12-29 [facility] Test 11:10:29 malignant neoplasm of cervix (procedure) [code = 786149479] Future Scheduled 2022-12-29 COVID-19 VACCINE (3 [facility] Test 11:10:29 - Pfizer series) [code = COVID-19 VACCINE (3 - Pfizer series)] Future Scheduled 2022-12-29 INFLUENZA VACCINE [facility] Test 11:10:29 [code = INFLUENZA VACCINE] Future Scheduled 2022-07-[address] [facility] Test 00:00:00 (12+) [code = Medical Center DEPRESSION SCREENING (12+)] Future Scheduled 2021-12-[address] [facility] Test 00:00:00 Counseling and Medical Cente r Screening (12+) [code = Tobacco Cessation Counseling and Screening (12+)] Future Scheduled 2020-12-15 COVID-19 VACCINE ([address] [facility] Test 00:00:00 - Booster for [facility] Center series) [code = COVID-19 VACCINE (3 - Booster for Pfizer series)] Future Scheduled [address] [facility] Test 00:00:00 malignant neoplasm Medical C enter of cervix (procedure) [code = 329215252] Future Scheduled [address] [facility] Test 00:00:00 (procedure) [code = Medical Center 60878097] Future Scheduled 2012 DTAP/TDAP/TD [facility] Test 00:00:00 VACCINES (1 - Tdap) Medical Center [code = DTAP/TDAP/TD VACCINES (1 - Tdap)] Future Scheduled [address] [facility] Test 00:00:00 SCREENING [code = Medical nter HEPATITIS C SCREENING] Encounters Start End Encounter Admission Attending Care Care Encounter Source Date/Time Date/Time Type Type Clinicians Facility Department ID 2022-03-28 Outpatient [facility] [id number] [place] 15:34:38 [id number] [facility] 2021-04-21 Outpatient BONEFAS, [facility] Surgery [id number] [facility] 00:54:14 SANDIE 2021-10-18 2021-10-18 [id number] 00:00:00 00:00:00 JOHN [address] 2021-10-16 2021-10-16 [facility] [id number] [place] 00:00:00 00:00:00 JOHN [address] 2021-09-24 2021-09-24 Outpatient R [facility] [id number] [facility] 20:20:00 20:20:00 [id number] it[facility] 2021-07-01 2021-07-05 [id number] [place] 00:00:00 00:00:00 JOHN 720 Method i 2021-07-01 2021-07-01 Outpatient BONENAZ, [facility] [id number] [place] 00:00:00 00:00:00 SANDIE Wylie Meth skylar 2021-06-26 2021-06-26 Outpatient OXANA, [facility] [id number] [place] 00:00:00 00:00:00 JOHN 515 Method i 2020-12-24 2020-12-24 [facility] [id number] [facility] 00:00:00 00:00:00 2020-10-20 2020-10-20 Outpatient [facility] [id number] [facility] 16:40:00 16:40:00 [facility] 2020-09-29 2020-09-29 Outpatient R HORACE, [facility] [id number] [facility] 16:35:00 16:35:00 SARAHI [facility] 2020 2020 Letter Doctor FOX [id number] 00:00:00 00:00:00 (Out) Unassigned, MIL [id number] Grimes [facility] [id number] Results Test Description Test Time Test Comments Results Result Sour e Comments MRI BRAIN WO/W 2022-04-16 12:14:03 [facility] RODY JOYNER : 1995 Sex: F CLINI EDGAR INDICATION: R97.8, Other abnormal tumor markers, Z17.0, Estrogen receptor positive status ER+ , Z80.3, Family history of malignant neoplasm of breast MODALITY: Accountable 3T MRITECHNIQUE: Multiplanar SE, FSE and inversion recovery pulse sequences of the brain were performed without contrast enhancement. Diffusion weighted imaging was utilized. IV contrast, 17 ml Dotarem are injected IV and post-contrast T1 axial and coronal images obtained.IMPRESSION:1. There are no acute intracranial abnormalities. No definite evidence of intracranial metastatic disease.2. Nonspecific periventricular white matter changes are present. Comparison with any prior brain MRI studies is suggested.3. There is no pathologic intracranial enhancement.FINDINGS:C OMPARISON: noneThere are nonspecific hazy foci of increased T2 and FLAIR signal in periventricular white matter, especially around the ventricular trigones, seen best on FLAIR sequence. There are no white matter lesions in the corpus callosum or posterior fossa. The findings are nonspecific in white matter and could be related to the patient's chemotherapy. The possibility of demyelinating disease is remote but is not entirely excluded. If there are prior studies, especially performed prior to any chemotherapeutic intervention, comparison would be recommended.There are no intracranial mass lesions. No focal edema, mass effect or shift of midline structures. No intracranial pathologic enhancing lesions are seen.There are no acute infarcts or hemorrhages. There is no acute restriction on diffusion sequences. There is no hydrocephalous.Sella and parasellar structures are normal. Central skull base is intact. The craniocervical junction is normal without mass or Chiari malformation.The brainstem, midbrain and cerebellum are normal. Bilateral internal auditory canals are normal and symmetric.Normal flow voids are seen intracranially in carotid and vertebrobasilar arteries. The dural venous sinuses are patent.The calvarium is intact. Extracranial soft tissues are unremarkable. There is no confluent paranasal sinus disease. Mastoid air cells are clear.No pathologic intracranial enhancement is observed. SARS-CoV-2 (COVID-19) RNA [Presence] in Respiratory sp ecimen by 2021-10-16 19:54:20 AUREA with probe detection Test Item Value Reference Range Interpretation Comme nts SARS-CoV-2 (COVID-19) RNA [Presence] in Respiratory specimen by Not detected AUREA with probe detection (test code = 20153-4) Whether patient is employed in a healthcare setting (test code = Un known 60331-3) Whether the patient has symptoms related to condition of interest U nknown (test code = 36866-3) Whether the patient was hospitalized for condition of interest Unkn own (test code = 05450-3) Whether the patient was admitted to intensive care unit (ICU) for U nknown condition of interest (test code = 04503-7) Whether patient resides in a congregate care setting (test code = U nknown 41835-9) status (test code = 59591-8) Unknown Date and time of symptom onset (test code = 55477-8) Unknown [facility]pI-7 (COVID-19) RNA [Presence] in Respiratory specimen by AUREA with probe [id number] 15:09:32 Test Item Value Reference Range Interpretation Comments SARS-CoV-2 (COVID-19) RNA Not detected Not-Detected [Presence] in Respiratory specimen by AUREA with probe detection (test code = 69846-6) Whether patient is employed in a healthcare setting (test code = 26995-2) Whether the patient has symptoms related to condition of interest (test code = 89564-7) Patient was hospitalized because of this condition (test code = 77463-1) Whether the patient was admitted to intensive care unit (ICU) for condition of interest (test code = 14614-9) Whether patient resides in a congregate care setting (test code = 92501-7) WAGNER QUEVEDO-CoV-2 (COVID-19) RNA [Presence] in Respiratory specimen by AUREA with probe [id number] 15:05:17 Test Item Value Reference Range Interpretation Comments SARS-CoV-2 (COVID-19) RNA Not detected Not-Detected [Presence] in Respiratory specimen by AUREA with probe detection (test code = 37618-1) Whether patient is employed in a healthcare setting (test code = 39147-8) Whether the patient has symptoms related to condition of interest (test code = 75790-3) Patient was hospitalized because of this condition (test code = 75318-7) Whether the patient was admitted to intensive care unit (ICU) for condition of interest (test code = 47131-2) Whether patient resides in a congregate care setting (test code = 96102-9) WAGNER NAVARRO, CHEST, 1 VIEW, NON [id number] 13:29:00Reason for exam:->[facility] 1995 Sex: FFINAL REPORT RAD, CHEST, 1 VIEW, NON DEPT INDICATION: line placement COMPARISON: Prior day's exam FINDINGS: Portable frontal view of the chest. IMPRESSION: Support Lines: Port-A-Cath tip overlies the right atrium Lungs and pleura: Diffuse bilateral interstitial thickening Nopneumothorax.Heart and mediastinum: Stable contours.Additional findings: None. Signed: Kristyn Youngblood Verified Date/Time: 12/25/2020 13:29:34 Reading Location: [facility] Radiology ReadingRoom FL, FLUORO, NON-SPECIFIC, UP TO 1 [id number] 13:01:00 Reason for exam:->insertion [facility]acath [facility] : 1995 Sex: FFluoroscopic unit utilized for a procedure performed in the OR. No interpretation was requested. Refer to the operative report for findings. Refer to PACS for patient radiation dose information.CBC W/PLT COUNT & AUTO [id number] 09:47:00 Test Item Value Reference Range Interpretation Comments WHITE BLOOD CELL COUNT (BEAKER) 5.8 K/ L 3.5-10.5 (test code = 775) RED BLOOD CELL COUNT (BEAKER) 4.65 M/ L 3.93-5.22 (test code = 761) HEMOGLOBIN (BEAKER) (test code = 12.7 GM/DL 11.2-15.7 410) HEMATOCRIT (BEAKER) (test code = 38.5 % 34.1-44.9 411) MEAN CORPUSCULAR VOLUME (BEAKER) 82.8 fL 79.4-94.8 (test code = 753) MEAN CORPUSCULAR HEMOGLOBIN 27.3 pg 25.6-32.2 (BEAKER) (test code = 751) MEAN CORPUSCULAR HEMOGLOBIN CONC 33.0 GM/DL 32.2-35.5 (BEAKER) (test code = 752) RED CELL DISTRIBUTION WIDTH 13.2 % 11.7-14.4 (BEAKER) (test code = 412) PLATELET COUNT (BEAKER) (test 204 K/CU MM 150-450 code = 756) MEAN PLATELET VOLUME (BEAKER) 9.9 fL 9.4-12.3 (test code = 754) NUCLEATED RED BLOOD CELLS 0 /100 WBC 0-0 (BEAKER) (test code = 413) NEUTROPHILS RELATIVE PERCENT 58 % (BEAKER) (test code = 429) LYMPHOCYTES RELATIVE PERCENT 29 % (BEAKER) (test code = 430) MONOCYTES RELATIVE PERCENT 9 % (BEAKER) (test code = 431) EOSINOPHILS RELATIVE PERCENT 4 % (BEAKER) (test code = 432) BASOPHILS RELATIVE PERCENT 1 % (BEAKER) (test code = 437) NEUTROPHILS ABSOLUTE COUNT 3.34 K/ L 1.56-6.13 (BEAKER) (test code = 670) LYMPHOCYTES ABSOLUTE COUNT 1.68 K/ L 1.18-3.74 (BEAKER) (test code = 414) MONOCYTES ABSOLUTE COUNT (BEAKER) 0.51 K/ L 0.24-0.36 H (test code = 415) EOSINOPHILS ABSOLUTE COUNT 0.22 K/ L 0.04-0.36 (BEAKER) (test code = 416) BASOPHILS ABSOLUTE COUNT (BEAKER) 0.03 K/ L 0.01-0.08 (test code = 417) IMMATURE GRANULOCYTES-RELATIVE 0 % 0-1 PERCENT (BEAKER) (test code = 2801) Notes Date/Time Note Provider Source 2020-12-25 20:48:41-00:00 SANDIE PADILLA [facility] OPERATIVE/PROCEDURE REPORT ANYA, VALERIA FACILITY: [facility] Billing #: [id number] Room: [facility] MR #: [id number] : 1995 DATE OF PROCEDURE: 12/25/2020 SURGEON: Sandie Padilla MD PREOPERATIVE DIAGNOSIS: BRCA1 mutation and carci noma of the left breast. POSTOPERATIVE DIAGNOSIS: BRCA1 mutation and carc inoma of the left breast. PROCEDURE PERFORMED: Placement of right internal jugular 6-Slovenian PowerPort with ultrasound and fluorosco pic guidance. ANESTHESIA: General. TELEVISION PROGRAM DIRECTOR: Ben Hatfield RES. ESTIMATED BLOOD LOSS: 5 mL. INDICATIONS FOR PROCEDURE: This patient is a 25- year-old female with BRCA1 mutation. 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 S he will have a port placed. OPERATIVE FINDINGS: The port appears to be in go od place with good backflow. OPERATIVE REPORT IN DETAIL: This patient was bro ught to the operating room and placed in the supine position on the operating room table. General anesthesia was est ablished. Time-out procedure was performed. She received h er IV antibiotics. Her SCDs were in place. The right c hest and neck had been prepped and draped in sterile fashion. Utilizing the GE ultrasound 13.5 megahertz probe, the right in ternal jugular vein was identified. 2% Xylocaine and 0.25% Nickolas carroll were locally infiltrated. Stab wound was made with an 11 blade. An 18-gauge needle was introduced into the vein und er ultrasound guidance. A Glidewire was passed. The needle was removed. More of the Marcaine and lidocaine mixture was i njected on the chest wall. Fluoroscopy confirmed position of th e wire in the superior vena cava. An incision was made. A subc utaneous pocket was created. The catheter was threaded up with a tunneler to the wire. This catheter was then con nected to the port. The port was placed in the pocket and secu red down with 2-0 Vicryl suture. The dilator and sheath were p laced over the guidewire. The guidewire and dilator were remove d. The catheter was threaded through the sheath. The sh eath was peeled away leaving the catheter in the superior vena cava. This again was confirmed on fluoroscopy. There w as good backflow and it flushed easily with heparinized saline solution. The port pocket was irrigated with aakash ine solution. The subdermal layer was reapproximated using int errupted 3-0 Vicryl suture and the skin was closed using runn ing 4-0 Monocryl subcuticular stitch. Dermabond was plac ed on all incisions. The procedure was concluded. The jessica mated blood loss was 5 mL. Sponge, needle, and instrument counts were correct. She tolerate d this well and was extubated and taken to recovery in stabl e condition. ETB/MODL /[id number]
[2023-01-13 15:11] LABS: Absolute Lymphocytes (CBC) 1.7 K/uL (0.7-4.9); Hematocrit 36.4 % (36.0-45.0); Lymphocytes % 12.6 % (15.3-44.8); MCV 81.8 fL (80-100); RBC Red Blood Cell Count 4.45 M/uL (3.86-4.86)
[2023-01-13] MEDS ORDERED: Ringers Lactate 1,000 ML IV ONE (15:38)
[2023-01-13 16:10] LABS: Albumin 3.2 g/dL (3.4-5.0); Bilirubin Total 0.6 mg/dL (0.2-1.0); Potassium 3.6 mEq/L (3.5-5.1); Protein, Total 7.8 g/dL (6.4-8.2)
--- NOTE | 2023-01-13 16:57 | ER ---
Nurse's Notes [facility] Name: Leah Izquierdo Age: 27 yrs Sex: Female : 1995 Arrival Date: 01/13/2023 Time: 14:18 Bed 18 Private MD: Diagnosis: Other acute pancreatitis without necrosis or infection Presentation: 01/13 14:28 Chief complaint: Patient states: Pain on the left lower back that radiates to abdomen, nj1 onset yesterday, went to clinic yesterday, advised to go to [place] ED, told she had a stone on the right and sent home, patient states pain is worse today. Coronavirus screen: Vaccine status: Patient reports receiving the 2nd dose of the covid vaccine. Ebola Screen: Patient denies travel to an Ebola-affected area in the 21 days before illness onset. Initial Sepsis Screen: Does the patient meet any 2 criteria? HR > 90 bpm. No. Patient's initial sepsis screen is negative. Does the patient have a suspected source of infection? No. Patient's initial sepsis screen is negative. Risk Assessment: Do you want to hurt yourself or someone else? Patient reports no desire to harm self or others. Onset of symptoms was December 13, 2022. 14:28 Method Of Arrival: Ambulatory [facility] 14:28 Acuity: KILO 3 pa1 Triage Assessment: 14:47 General: Appears distressed, uncomfortable, Behavior is cooperative, appropriate for bp age, anxious. Pain: Complains of pain in back. EENT: No deficits noted. Neuro: No deficits noted. Cardiovascular: No deficits noted. Respiratory: No deficits noted. GI: Abdomen is distended. : No signs and/or symptoms were reported regarding the genitourinary system. Derm: No deficits noted. Musculoskeletal: No deficits noted. Historical: - Allergies: 14:40 No Known Allergies; nj1 - PMHx: 14:40 Breast CA; nj1 - PSHx: 14:41 Mastectomy; nj1 - Immunization history:: Client reports receiving the 2nd dose of the Covid vaccine. - Social history:: Smoking status: Patient denies any tobacco usage or history of. Screenin:48 [facility] ED Fall Risk Assessment (Adult) History of falling in the last 3 months, bp including since admission No falls in past 3 months (0 pts). Abuse screen: Denies threats or abuse. Denies injuries from another. Nutritional screening: No deficits noted. Tuberculosis screening: No symptoms or risk factors identified. Assessment: 14:48 General: SEE TRIAGE NOTE. bp 15:51 Reassessment: No changes from previously documented assessment. Patient is alert, bp oriented x 3, equal unlabored respirations, skin warm/dry/pink. 18:15 Reassessment: INSULIN GTT AT 2 UNIT/HR, FIRST BGL 88. HOSPITALIST AT B/S. bp 18:52 Reassessment: PER DR BENOIT, INSULIN GTT PAUSED UNTIL 1999. bp 18:52 GI: Bowel sounds present X 4 quads. Abd is soft X 4 quads. bp Vital Signs: 14:28 BP 122 / 73; Pulse 121; Resp 18; Temp 99.5(O); Pulse Ox 100% ; Weight 86.18 kg; Height nj1 5 ft. 6 in. ; Pain 7/10; 15:51 BP 119 / 78; Pulse 106; Resp 16; Pulse Ox 100% ; Weight 87.09 kg; bp 18:15 BP 129 / 89; Pulse 111; Resp 18; Pulse Ox 99% ; bp 15:51 Body Mass Index 30.99 (87.09 kg, 167.64 cm) bp 14:28 Pain Scale: Adult nj1 ED Course: 14:21 Patient arrived in ED. ts1 14:23 Porfirio Jin PA is PHCP. jmm 14:23 Maverick Garza MD is Attending Physician. jmm 14:23 Rj Green DO is Attending Physician. ms3 14:40 Triage completed. nj1 14:45 Arm band placed on right wrist. nj1 14:47 Nolan Burton, NIKOLAI is Primary Nurse. bp 14:48 Patient has correct armband on for positive identification. Bed in low position. Call bp light in reach. Side rails up X2. 15:00 Inserted saline lock: 20 gauge in left forearm, using aseptic technique. Blood bp collected. 16:56 Jose Benoit MD is Hospitalizing Provider. ms3 18:50 No provider procedures requiring assistance completed. Patient admitted, IV remains in bp place. Administered Medications: 15:00 Drug: Lactated Ringers Solution IV 1000 ml Route: IV; Rate: bolus; Site: left forearm; bp 17:22 Follow up: IV Status: Completed infusion; IV Intake: 1000ml bp 18:11 Drug: Insulin Drip - (Insulin Regular Human IVP 100 units, NS 0.9% IV 100 ml) bp {Co-Signature: nj1 (Chrissie Neri RN).} Route: IV; Rate: 2 units/hr; Site: left forearm; 18:11 Drug: D5-LR IV 1000 ml Route: IV; Rate: 150 ml/hr; Site: left forearm; bp 18:11 Drug: morphine IVP or IV 4 mg Route: IVP; Infused Over: 4 mins; Site: left forearm; bp 20:40 Drug: morphine IVP or IV 4 mg Route: IVP; Infused Over: 4 mins; Site: left forearm; vc1 Medication: 14:48 VIS not applicable for this client. bp Intake: 17:22 IV: 1000ml; Total: 1000ml. bp Outcome: 16:57 Decision to Hospitalize by Provider. ms3 21:04 Admitted to ICU accompanied by nurse, via stretcher, Report called to Receiving nurse vc1 21:04 Condition: good 21:04 Instructed on the need for admit. 21:06 Patient left the ED. vc1 Signatures: Porfirio Jin PA PA jmm Peltier, Brian, RN RN bp Green, Rj, DO DO ms3 Renay Fajardo RN RN vc1 Chrissie Neri RN RN nj1 Le Erwin PAS PAS ts1 Chrissie Neri RN nj1 Corrections: (The following items were deleted from the chart) 17:35 15:51 BP 119 / 78; Pulse 106bpm; Resp 16bpm; Pulse Ox 100%; bp bp
--- NOTE | 2023-01-13 16:57 | EDPHYS ---
Physician Documentation Former[facility] Name: Leah Izquierdo Age: 27 yrs Sex: Female : 1995 Arrival Date: 01/13/2023 Time: 14:18 Bed 18 Private MD: ED Physician Rj Green HPI: 01/13 15:10 This 27 yrs old Female presents to ER via Ambulatory with complaints of ms3 Abdominal Pain, Back Pain. 15:10 27-year-old female with past medical history of breast cancer presents for generalized ms3 abdominal pain and back pain. Patient states she was seen in [place] yesterday and had CT scan of her abdomen pelvis performed that showed a right-sided kidney stone. Patient denies fevers, chills. Patient rates her pain a 01/19. Historical: - Allergies: 14:40 No Known Allergies; nj1 - PMHx: 14:40 Breast CA; nj1 - PSHx: 14:41 Mastectomy; nj1 - Immunization history:: Client reports receiving the 2nd dose of the Covid vaccine. - Social history:: Smoking status: Patient denies any tobacco usage or history of. ROS: 15:20 Constitutional: Negative for fever, and chills. Eyes: Negative for injury, pain, ms3 redness, and discharge, Cardiovascular: Negative for chest pain, and palpitations. Respiratory: Negative for shortness of breath, cough, wheezing, and pleuritic chest pain, MS/Extremity: Negative for injury and deformity, Skin: Negative for injury, rash, and discoloration. 15:20 Abdomen/GI: Positive for abdominal pain. 15:20 All other systems are negative. Exam: 15:20 Constitutional: This is a well developed, well nourished patient who is awake, alert, ms3 and in no acute distress. Head/Face: Normocephalic, atraumatic. Neck: Trachea midline, no cervical lymphadenopathy. Supple, full range of motion without nuchal rigidity, or vertebral point tenderness. No Meningismus. Chest/axilla: Normal chest wall appearance and motion. Nontender with no deformity. Cardiovascular: Regular rate and rhythm with a normal S1 and S2. No gallops, murmurs, or rubs. Normal PMI, no JVD. No pulse deficits. Respiratory: Lungs have equal breath sounds bilaterally, clear to auscultation and percussion. No rales, rhonchi or wheezes noted. No increased work of breathing, no retractions or nasal flaring. Skin: Warm, dry with normal turgor. Normal color with no rashes, no lesions, and no evidence of cellulitis. MS/ Extremity: Pulses equal, no cyanosis. Neurovascular intact. Full, normal range of motion. 15:20 Abdomen/GI: Inspection: abdomen appears normal, Bowel sounds: normal, Palpation: moderate abdominal tenderness, in the epigastric area. Vital Signs: 14:28 BP 122 / 73; Pulse 121; Resp 18; Temp 99.5(O); Pulse Ox 100% ; Weight 86.18 kg; Height nj1 5 ft. 6 in. ; Pain 7/10; 15:51 BP 119 / 78; Pulse 106; Resp 16; Pulse Ox 100% ; Weight 87.09 kg; bp 18:15 BP 129 / 89; Pulse 111; Resp 18; Pulse Ox 99% ; bp 15:51 Body Mass Index 30.99 (87.09 kg, 167.64 cm) bp 14:28 Pain Scale: Adult nj1 MDM: 14:49 Patient medically screened. ms3 15:20 Differential diagnosis: Pancreatitis vs Gastritis vs Abdominal pain. ms3 17:19 Data reviewed: vital signs, nurses notes, lab test result(s), and as a result, I will ms3 admit patient. Consideration of Admission/Observation Patient was admitted/placed on observation. Management of patient was discussed with the following: Hospitalist: Dr Benoit. I considered the following discharge prescriptions or medication management in the emergency department Medications were administered in the Emergency Department. See MAR. Test considered but Not performed: CT: Per patient CT negative at [facility] yesterday. Counseling: I had a detailed discussion with the patient and/or guardian regarding: the historical points, exam findings, and any diagnostic results supporting the discharge/admit diagnosis, lab results, the need for further work-up and treatment in the hospital. Response to treatment: the patient's symptoms have mildly improved after treatment. 01/13 14:37 Order name: CBC with Diff; Complete Time: 15:20 ms3 01/13 14:37 Order name: CMP; Complete Time: 16:52 ms3 01/13 14:37 Order name: Lipase; Complete Time: 16:52 ms3 01/13 14:49 Order name: Lipid Profile ms3 01/13 17:34 Order name: CBC with Automated Diff EDMS 01/13 17:34 Order name: Magnesium EDMS 01/13 17:34 Order name: Phosphorus EDMS 01/13 17:34 Order name: Urinalysis w/ reflexes EDMS 01/13 17:34 Order name: Basic Metabolic Panel EDMS 01/13 17:34 Order name: Basic Metabolic Panel EDMS 01/13 17:34 Order name: Lipid Profile EDMS 01/13 17:34 Order name: Lipid Profile EDMS 01/13 17:36 Order name: Lipase EDMS 01/13 17:36 Order name: Lipase EDMS 01/13 18:10 Order name: Glucose, Ancillary Testing; Complete Time: 18:17 EDMS 01/13 19:14 Order name: LDL, Direct EDMS 01/13 19:47 Order name: Glucose, Ancillary Testing EDMS 01/13 17:30 Order name: NPO EDMS 01/13 14:37 Order name: IV Saline Lock; Complete Time: 15:03 ms3 01/13 14:37 Order name: Labs collected and sent; Complete Time: 15:03 ms3 01/13 15:29 Order name: Misc. Order: Recollect on Chem; Complete Time: 15:39 mb9 Administered Medications: 15:00 Drug: Lactated Ringers Solution IV 1000 ml Route: IV; Rate: bolus; Site: left forearm; bp 17:22 Follow up: IV Status: Completed infusion; IV Intake: 1000ml bp 18:11 Drug: Insulin Drip - (Insulin Regular Human IVP 100 units, NS 0.9% IV 100 ml) bp {Co-Signature: nj1 (Chrissie Neri RN).} Route: IV; Rate: 2 units/hr; Site: left forearm; 18:11 Drug: D5-LR IV 1000 ml Route: IV; Rate: 150 ml/hr; Site: left forearm; bp 18:11 Drug: morphine IVP or IV 4 mg Route: IVP; Infused Over: 4 mins; Site: left forearm; bp 20:40 Drug: morphine IVP or IV 4 mg Route: IVP; Infused Over: 4 mins; Site: left forearm; vc1 Disposition Summary: 01/13/23 16:57 Hospitalization Ordered Hospitalization Status: Inpatient Admission ms3 Provider: Jose Benoit ms3 Location: Intensive Care Unit ms3 Condition: Stable ms3 Problem: new ms3 Symptoms: are unchanged ms3 Bed/Room Type: Standard ms3 Room Assignment: 7-(01/13/23 18:33) dw Diagnosis - Other acute pancreatitis without necrosis or infection ms3 Forms: - Medication Reconciliation Form ms3 - SBAR form ms3 Signatures: Dispatcher [employer] Beverley Jackson RN RN Nolan Lawrence RN RN Rj Olson DO DO ms3 CalcRenay reyes RN RN vc1 Hazel, Lenore Cheatham, RN RN mb9 Maverick Garza MD MD rt Chrissie Neri RN RN nj1 Chrissie Neri RN nj1 Corrections: (The following items were deleted from the chart) 15:20 15:10 27-year-old female with past medical history of breast cancer. ms3 ms3 18:33 16:57 ms3 dw
[2023-01-13] MEDS ORDERED: MORPHINE 4 MG/ML SYR IV PRN (17:27)
[2023-01-13] MEDS ORDERED: ONDANSETRON 4 MG/2 ML VIAL IV PRN (17:31)
--- NOTE | 2023-01-13 17:34 | P.HP ---
Certification for Inpatient Patient admitted to: Observation With expected LOS: <2 Midnights Patient will require the following post-hospital care: None Practitioner: I am a practitioner with admitting privileges, knowledge of patient current condition, hospital course, and medical plan of care. Services: Services provided to patient in accordance with Admission requirements found in Title 42 Section 412.3 of the Code of Federal Regulations Patient History Date of Service: 01/13/23 Reason for admission: Epigastric pain, nausea and vomiting History of Present Illness: Patient is a 27-year-old female with a past medical history significant for breast cancer who presents with complaint of abdominal pain located in the epigastric area\right upper quadrant with radiation to her bilateral flank and low back area. Patient reported that she has been having intermittent abdominal pain in the last 2 months but pain became worse yesterday. Patient rated pain as 10/10 in severity and described pain as throbbing in quality. Patient was seen at [facility] where she was diagnosed with hypertriglyceridemia and nonobstructing right-sided kidney stone. Patient was discharged home with NSAIDs. Patient reported that she continued to have abdominal pain. Patient reported associated signs and symptoms of nausea, vomiting, diarrhea with p.o. intake. Patient reported that she has not been able to keep any p.o. intake down. Patient denies any other signs and symptoms. Abdominal pain is aggravated by deep breathing and relieved by nothing. Patient decided to present to the hospital due to worsening symptoms. Allergies No Known Allergies Allergy (Unverified 11/06/19 10:27) Home Medications: Pnv No.95/Ferrous Fum/Folic AC [Prenavite Tablet] 1 each PO 1X 11/07/19 Tramadol HCl [Ultram] 50 mg PO Q6HR #25 tablet 11/09/19 - Past Medical/Surgical History -: Right breast Cancer -: primary 2013 - Family History Family History: Reviewed- Non-Contributory - Social History Smoking Status: Never smoker Alcohol use: No CD- Drugs: No Caffeine use: No Place of Residence: Home Review of Systems General: Unremarkable Eyes: Unremarkable ENT: Unremarkable Respiratory: Unremarkable Cardiovascular: Unremarkable Gastrointestinal: Nausea, Vomiting, Abdominal Pain, Diarrhea Genitourinary: Other (Bilateral flank pain) Musculoskeletal: Back Pain Integumentary: Unremarkable Neurological: Unremarkable Lymphatics: Unremarkable Physical Examination - Physical Exam General: Alert, In no apparent distress, Oriented x3, Cooperative HEENT: Atraumatic, PERRLA, Mucous membr. moist/pink, EOMI, Sclerae nonicteric Neck: Supple, 2+ carotid pulse no bruit, No LAD, Without JVD or thyroid abnormality Respiratory: Clear to auscultation bilaterally, Normal air movement Cardiovascular: No edema, Regular rate/rhythm, Normal S1 S2 Capillary refill: <2 Seconds Gastrointestinal: Normal bowel sounds, Tenderness Musculoskeletal: No clubbing, No swelling, No tenderness Integumentary: No rashes, No breakdown, No significant lesion Neurological: Normal gait, Normal speech, Normal strength at 5/5 x4 extr, Normal tone, Normal affect Lymphatics: No axilla or inguinal lymphadenopathy - Studies Laboratory Data (last 24 hrs) 01/13/23 15:00: Sodium 133 L, Potassium 3.6, BUN 10, Creatinine 0.68, Glucose 107 H, Total Bilirubin 0.6, AST 26, ALT 25, Alkaline Phosphatase 53, Lipase 158 H 01/13/23 15:00: WBC 13.50 H, Hgb 12.0, Hct 36.4, Plt Count 182 Assessment and Plan - Plan --Acute pancreatitis. Likely secondary to high triglyceride levels. Triglycerides level at [facility] yesterday was greater than 1575. Level currently at 601. Lipase at 158. Patient started on D5 LR and insulin drip. We will monitor BMP, magnesium and phosphorus every 6 hours. Patient will be admitted to ICU for further close monitoring. Continue supportive care. --Acute pain. We will manage pain with current pain medication regimen. --History of right breast cancer. Status post chemotherapy. Last chemotherapy session was in June 2022. Per patients report patient currently on tamoxifen. Continue supportive care. --Nausea and vomiting. Antiemetics on board. Continue IV hydration --Diarrhea. Patient reports episode of diarrhea whenever she eats. Denies any episode of diarrhea today. Continue supportive care. --Leukocytosis. Likely reactive. We will continue to monitor WBC levels. --Class I obesity. Likely secondary to excess calories intake. Patient counseled on weight reduction, diet and excise therapy. --DVT prophylaxis with Lovenox subQ. Discharge Plan: Home Plan to discharge in: 48 Hours - Advance Directives Does patient have a Living Will: No Does patient have a Durable POA for Healthcare: No - Code Status/Comfort Care Code Status Assessed: Yes Physician Review: Patient Assessed, Agree with Above Assessment and Plan Critical Care: No
[2023-01-13] MEDS ORDERED: INSULIN -REGULAR HUMAN 50 UNIT/0.5 ML ML ONE (17:48)
[2023-01-13] MEDS ORDERED: D5LR 1,000 ML IV ONE (17:49)
[2023-01-13] MEDS ORDERED: NA CHLORIDE 0.9% 100 ML ONE (17:50)
[2023-01-13] MEDS ORDERED: MORPHINE 4 MG/ML SYR ONE ×2 (17:53→20:48)
[2023-01-13] MEDS ORDERED: GLUCAGON 1 MG/VIAL IM PRN ×2 (18:08→18:14)
[2023-01-13] MEDS ORDERED: D50W 25 GM/50 ML SYRINGE IV PRN ×2 (18:08→18:14)
[2023-01-13] MEDS ORDERED: INSULIN -REGULAR HUMAN 100 UNIT in NA CHLORIDE 0.9% 100 ML IV SCH (18:15)
[2023-01-13] MEDS ORDERED: D10W 125 ML IV PRN (18:19)
[2023-01-13 18:23] LABS: Absolute Lymphocytes (CBC) 1.5 K/uL (0.7-4.9); Hematocrit 35.8 % (36.0-45.0); Lymphocytes % 11.6 % (15.3-44.8); MCV 82.4 fL (80-100); MPV 8.1 fL (7.6-11.3); RBC Red Blood Cell Count 4.35 M/uL (3.86-4.86)
[2023-01-13 18:43] LABS: Phosphorus 3.1 mg/dL (2.5-4.9)
[2023-01-13 18:44] LABS: Magnesium 2.1 mg/dL (1.6-2.4)
[2023-01-13] MEDS: D5LR 1,000 ML IV SCH (19:00)
[2023-01-13 19:03] LABS: HDL Cholesterol 37 mg/dL (40-60)
[2023-01-13 19:14] LABS: LDL, Direct 61 mg/dL (100-129)
[2023-01-13 21:17] VITALS: O2SAT 99
[2023-01-14 00:46] LABS: Magnesium 1.9 mg/dL (1.6-2.4); Phosphorus 2.9 mg/dL (2.5-4.9); Potassium 3.4 mEq/L (3.5-5.1)
[2023-01-14] MEDS: D5LR 1,000 ML IV SCH (01:07)
[2023-01-14 06:58] LABS: Magnesium 1.9 mg/dL (1.6-2.4); Phosphorus 3.1 mg/dL (2.5-4.9); Potassium 3.6 mEq/L (3.5-5.1)
[2023-01-14] MEDS ORDERED: D5LR 1,000 ML IV SCH (07:30)
[2023-01-14] MEDS: MORPHINE 4 MG/ML SYR IV PRN ×3 (08:08→19:17)
[2023-01-14] MEDS: FENOFIBRATE 160 MG TAB PO SCH (08:10)
[2023-01-14] MEDS: ENOXAPARIN 40 MG/0.4 ML SQ SCH (08:10)
[2023-01-14] MEDS: icosapent ethyL 1 GM CAP PO SCH ×2 (09:45→21:01)
--- NOTE | 2023-01-14 10:30 | P.PN ---
Subjective Date of Service: 01/14/23 Chief Complaint: Epigastric pain, nausea and vomiting No acute events overnight. This morning, she reports that her abdominal pain has improved, but is still graded a 7/10 in severity. She reports minimal nausea. She denies any chest pain, palpitations, shortness of breath, vomiting, or diarrhea. Review of Systems 10-point ROS is otherwise unremarkable Gastrointestinal: Nausea, Abdominal Pain Physical Examination - Vital Signs Temperature: 98.4 F Blood Pressure: 110/77 Pulse: 113 Respirations: 22 Pulse Ox (%): 97 - Physical Exam General: Alert, In no apparent distress, Oriented x3 HEENT: Atraumatic, Mucous membr. moist/pink, Sclerae nonicteric Neck: JVD not distended Respiratory: Clear to auscultation bilaterally, Normal air movement Cardiovascular: No edema, Regular rate/rhythm, Normal S1 S2, No gallops, No rubs, No murmurs Gastrointestinal: Normal bowel sounds, Soft and benign, Non-distended, No rebound, No guarding, Tenderness (mid-epigastric) Musculoskeletal: No clubbing Integumentary: No rashes Neurological: Normal speech, Normal affect - Studies Laboratory Data (last 24 hrs) 01/13/23 15:00: Sodium 133 L, Potassium 3.6, BUN 10, Creatinine 0.68, Glucose 107 H, Total Bilirubin 0.6, AST 26, ALT 25, Alkaline Phosphatase 53, Lipase 158 H 01/13/23 15:00: WBC 13.50 H, Hgb 12.0, Hct 36.4, Plt Count 182 Assessment And Plan - Plan # Acute Hypertriglyceridema-Induced Pancreatitis # SIRS Criteria (Tachycardia, Tachypnea) due to above - no obvious source of infection She had an elevated lipase and reported mid-epigastric abdominal pain consistent with acute pancreatitis. She takes tamoxifen, which has rarely been seen to cause hypertriglyceridemia-induced pancreatitis. - Triglycerides at [facility] was reportedly 1575 - Triglyceride level: 601 -> 375 - Transition off of insulin drip. Started on fenofibrate and Vascepa. - Ordered RUQ ultrasound to evaluate for gallstones - NPO - advance diet as tolerated - Switch D5-LR to Lactated Ringers @ 150 mL/hour - PRN pain medications # History of Breast Cancer s/p Chemotherapy and Bilateral Mastectomy now on Tamoxifen - Spoke with her oncologist, Dr. Juvencio Canseco, who stated that hypertriglyceridemia-induced pancreatitis is a rare side effect of tamoxifen - He recommended holding tamoxifen until she sees him in clinic Jose Benoit M.D.
--- NOTE | 2023-01-14 12:57 | RAD REPORT ---
EXAM DESCRIPTION: US - Abdomen Exam Limited - 01/14/2023 12:31 pm CLINICAL HISTORY: Abdominal pain. COMPARISON: None. FINDINGS: The gallbladder wall is not thickened. A gallstone is not seen. Positive Malik sign. Mild gallbladder distention The biliary tree is normal caliber. Pancreatic head and proximal body normal in size and echotexture. Remainder of pancreas is not well s een secondary to overlying bowel gas. IMPRESSION: Positive Malik's sign. Mild gallbladder distention A gallstone was not visualized
[2023-01-14 13:27] LABS: Magnesium 2.1 mg/dL (1.6-2.4); Potassium 3.3 mEq/L (3.5-5.1)
--- NOTE | 2023-01-14 14:53 | RAD REPORT ---
EXAM DESCRIPTION: Kristy Single View01/14/2023 2:38 pm CLINICAL HISTORY: leukocytosis COMPARISON: none FINDINGS: Lung bases are mildly hazy. This is equivocal for small pleural effusions. The lungs appear clear of acute infiltrate. The heart is normal size
[2023-01-14 18:16] LABS: Potassium 3.6 mEq/L (3.5-5.1)
[2023-01-14] MEDS: ACETAMINOPHEN 325 MG TABLET PO PRN (19:15)
[2023-01-14] MEDS: Ringers Lactate 1,000 ML IV SCH (19:16)
[2023-01-15] MEDS: Ringers Lactate 1,000 ML IV SCH ×5 (00:20→20:20)
[2023-01-15 05:22] LABS: Absolute Lymphocytes (CBC) 1.7 K/uL (0.7-4.9); Hematocrit 29.6 % (36.0-45.0); Lymphocytes % 16.1 % (15.3-44.8); MCV 84.2 fL (80-100); MPV 8.4 fL (7.6-11.3); RBC Red Blood Cell Count 3.51 M/uL (3.86-4.86)
[2023-01-15 05:30] LABS: Magnesium 2.1 mg/dL (1.6-2.4); Phosphorus 3.4 mg/dL (2.5-4.9); Potassium 3.5 mEq/L (3.5-5.1)
[2023-01-15 07:11] VITALS: BMI 31.4
[2023-01-15] MEDS ORDERED: KCL 20 MEQ/100 mL IVPB 20 MEQ/100 ML BAG IV SCH (08:00)
[2023-01-15] MEDS: icosapent ethyL 1 GM CAP PO SCH ×2 (08:03→21:31)
[2023-01-15] MEDS: ENOXAPARIN 40 MG/0.4 ML SQ SCH (08:03)
[2023-01-15] MEDS: FENOFIBRATE 160 MG TAB PO SCH (08:03)
--- NOTE | 2023-01-15 15:17 | RAD REPORT ---
EXAM DESCRIPTION: NM - Hepatobiliary System W/ Ph - 01/15/2023 2:41 pm CLINICAL HISTORY: Abdominal pain. Ultrasound concerning for acute cholecystitis COMPARISON: Abdominal ultrasound 01/14/2023. TECHNIQUE: The patient was administered approximately 6.4 mCi Tc99m Choletee. Imaging of the right u pper quadrant was performed initially for up to 60 minutes. The patient was administered synthetic CC K over a slow 30 minute infusion. EDDIE measurements were obtained of the gallbladder and an ejection f raction calculated. Synthetic CCK dosage was 1.8 ugm. FINDINGS: There is homogeneous uptake of radiopharmaceutical throughout the liver. There is no delay in visualization of the biliary tree or duodenum. Gallbladder visualizes within normal time limits. The calculated ejection fraction is 21%. The patient reported no pain prior to the procedure and no symptoms during or subsequent to synthetic CCK infusion. IMPRESSION: Patent cystic duct and patent sphincter of Oddi. No delay in visualization of the gallbl adder, biliary tree, or duodenum. Ejection fraction is reduced, 21%, suggesting a functional gallbladder abnormality. Patient reported no pre-procedure pain, and no pain during or subsequent to synthetic CCK infusion.
[2023-01-15] MEDS: ACETAMINOPHEN 325 MG TABLET PO PRN (15:38)
--- NOTE | 2023-01-15 16:13 | CON ---
Date of Consultation: 01/14/2023 Reason For Consultation: Evaluate gallbladder as an etiology for pancreatitis. History Of Present Illness: This is a 27-year-old female, who came in with epigastric pain, nausea a nd vomiting with acute pancreatitis as her triglycerides level were much greater than 1000. She was seen in [facility]. She was discharged with NSAIDs. However, she has continued to have bloating pain in t he epigastric, right upper quadrant and was not able to keep any PO down and she presented to emergen cy room and was admitted and as part of the workup, patient had an ultrasound which showed Malik sig n and distended gallbladder. Therefore, I was consulted. Patient is awake, alert. She says that he r pain is much better and she is tolerating clear liquids. She denies any diarrhea, constipation, bl ood in her stool. No dysuria or hematuria. No sore throat, runny nose, cough, headaches, dizziness, chest pain, or fever, currently. Review of Systems: Otherwise, unremarkable. Past Medical History: Significant for left breast cancer. Patient was treated with bilateral mastec neetu and chemotherapy, as well as, reconstruction. Her last chemotherapy was in June. She is currently on tamoxifen. She had a in the past as well. Allergies: NONE. Social History: Patient does not smoke or drink. Family History: Significant for breast cancer in the mother. Physical Examination: Vital Signs: Stable. She is afebrile. Respiratory rate is 24, however. General: She is awake, alert, and oriented x3. Head and Neck: Cranial nerves 2 through 12 are grossly within normal limits. No evidence of retrost ernal mass. No JVD. Throat clear. Neck supple. Chest: Clear. Abdomen: Soft. Minimal epigastric, left upper quadrant tenderness. No rebound, rigidity, or guardi ng. No Malik sign. Extremity: Adequately perfused. Nontender. Neuro: Nonfocal. Laboratory Data: White count today is 10.8, which is down from 13.5 from 2 days ago. Chemistry revi ewed. Her electrolytes are essentially within normal limits and her LFTs on admission were within no rmal limits as well. Her triglycerides was 601, cholesterol was 209, and triglycerides are down to 3 65 yesterday. She had an ultrasound of the abdomen done which was reviewed, showed distended gallbla dder with Malik sign. No stones were seen. The distention was mild and gallbladder wall was not th ickened. Assessment: 27-year-old female with breast cancer, on tamoxifen, with hypertriglyceridemia with panc reatitis with lipase was elevated to 158, I believe, and concern for gallstones perhaps being part of this clinical scenario as well. Recommendation: At this point, we will get a HIDA scan. Based on that, we will determine if indeed patient has acute cholecystitis. If the patient does not, I would recommend holding off on any surge ry even if the HIDA scan is slightly abnormal. In the meantime, if there is equivocal finding then c onsideration could be made for an MRCP. Again patient is clinically improving on current management. I think surgical intervention if needed should be held off until patient has recovered completely f rom the pancreatitis. We will make further recommendations after the HIDA scan is done and plan of c are was initially discussed with Dr. Benoit. ANA/SADIA Voice ID: [id number] Report ID: [id number]
--- NOTE | 2023-01-15 20:47 | P.PN ---
Subjective Date of Service: 01/15/23 Chief Complaint: Epigastric pain, nausea and vomiting No acute events overnight. She reports that her pain continues to gradually improve. This morning, she grades it a 3/10 in severity. She denies any chest pain, palpitations, shortness of breath, vomiting, or diarrhea. Review of Systems 10-point ROS is otherwise unremarkable Gastrointestinal: Abdominal Pain Physical Examination - Vital Signs Temperature: 98.3 F Blood Pressure: 136/79 Pulse: 114 Respirations: 18 Pulse Ox (%): 96 Assessment And Plan - Plan - Physical Exam General: Alert, In no apparent distress, Oriented x3 HEENT: Atraumatic, Sclerae nonicteric Respiratory: Clear to auscultation bilaterally, Normal air movement Cardiovascular: No edema, Regular rate/rhythm, No murmurs Gastrointestinal: Normal bowel sounds, Soft Non-distended, No rebound, No guarding, Tenderness (mild mid-epigastric) Musculoskeletal: No clubbing Integumentary: No rashes Neurological: Normal speech, Normal affect # Acute Hypertriglyceridema-Induced Pancreatitis # SIRS Criteria (Tachycardia, Tachypnea) due to above - no obvious source of infection She had an elevated lipase and reported mid-epigastric abdominal pain consistent with acute pancreatitis. She takes tamoxifen, which has rarely been seen to cause hypertriglyceridemia-induced pancreatitis. - Triglycerides at [facility] was reportedly 1575 - Triglyceride level: 601 -> 375 - Transitioned off of insulin drip. Started on fenofibrate and Vascepa. - RUQ ultrasound = "positive Malik's sign. Mild gallbladder distention. A gallstone was not visualized." - Consulted General Surgery and spoke with Dr. Clark - he recommended HIDA scan, plan to obtain at 13:00 - NPO - advance diet as tolerated - Lactated Ringers @ 150 mL/hour - PRN pain medications # History of Breast Cancer s/p Chemotherapy and Bilateral Mastectomy now on Tamoxifen - Spoke with her oncologist, Dr. Juvencio Canseco, who stated that hypertriglyceridemia-induced pancreatitis is a rare side effect of tamoxifen - He recommended holding tamoxifen until she sees him in clinic Jose Benoit M.D.
[2023-01-16] MEDS: Ringers Lactate 1,000 ML IV SCH ×2 (03:00→09:21)
[2023-01-16 07:42] LABS: Hematocrit 29.7 % (36.0-45.0)
[2023-01-16 08:06] LABS: Potassium 3.5 mEq/L (3.5-5.1)
[2023-01-16] MEDS: FENOFIBRATE 160 MG TAB PO SCH (09:21)
[2023-01-16] MEDS: icosapent ethyL 1 GM CAP PO SCH (09:21)
[2023-01-16] MEDS: ENOXAPARIN 40 MG/0.4 ML SQ SCH (09:22)
[2023-01-16 14:45] LABS: Urine Bacteria <20 /HPF (<20); Urine Mucus Slight /HPF (None Seen); Urine RBC <5 /HPF (None Seen)
[2023-01-16 14:48] LABS: Specific Gravity 1.009 (1.005-1.030); Urine Bilirubin NEGATIVE (Negative); Urine Blood Negative (Negative); Urine Clarity Turbid (Clear); Urine Color Light-Yellow (Yellow); Urine Glucose NEGATIVE (Negative); Urine Protein NEGATIVE (Negative); Urine Urobilinogen 2+ (Normal)
[2023-01-16 15:55] LABS: Specific Gravity 1.009 (1.005-1.030)
[2023-01-16 15:57] VITALS: BP 129/81; TEMP 98.7
--- NOTE | 2023-01-16 17:06 | P.DS ---
Admission Date: 01/13/23 Discharge Date: 01/16/23 Disposition: ROUTINE DISCHARGE Discharge Condition: GOOD Reason for Admission: Epigastric pain, nausea and vomiting Consultations: 1. General Surgery Hospital Course: DIAGNOSES: # Acute Hypertriglyceridema-Induced Pancreatitis # SIRS Criteria (Tachycardia, Tachypnea) due to above - no obvious source of infection # History of Breast Cancer s/p Chemotherapy and Bilateral Mastectomy now on Tamoxifen HOSPITAL COURSE: Ms. eLah Izquierdo is a 27 year old female with a past medical history significant for breast cancer s/p chemotherapy and bilateral mastectomy on tamoxifen who was admitted to the [facility] on 01/13/2023 for abdominal pain. She was admitted to the Medicine service. Prior to admission, she had previously presented to [facility] and was told that her triglyceride level was 1575. Given her elevated lipase and midepigastric pain in combination with her hypertrig lyceridemia, she was diagnosed with hypertriglyceridemiainduced pancreatitis. She was placed NPO, started on IV fluids, and provided with as needed pain medications. Over the course of her hospitalization, her symptoms improved significantly. Her diet was reintroduced and gradually advanced. Today, she was able to tolerate a soft diet and requested to be discharged home. Of note, during her pancreatitis evaluation, a right upper quadrant ultrasound was obtained. This study revealed, "positive Malik's sign. Mild gallbladder distention. A gallstone was not visualized." General Surgery was consulted and she was evaluated by Dr. Clark. He recommended a HIDA scan, which revealed, "patent cystic duct and patent sphincter of Oddi. No delay in visualization of the gallbladder, biliary tree, or duodenum. Ejection fraction is reduced, 21%, suggesting a functional gallbladder abnormality. Patient reported no pre- procedure pain, and no pain during or subsequent to synthetic CCK infusion." Dr. Clark recommended nonoperative management and outpatient follow-up. Additionally, I spoke with her oncologist Dr. Canseco, who stated that hypertriglyceridemiainduced pancreatitis is a rare side effect of tamoxifen. He advised that she hold tamoxifen until she follows up with him in clinic. On 01/16/2023, she was seen on rounds and deemed medically stable for discharge. She was discharged with instructions to schedule follow-up appointments with her PCP, with General Surgery (Dr. Clark), and with Oncology (Dr. Canseco). She was provided a prescription for fenofibrate. She and her family members were given the opportunity to ask questions and reported no further questions. Furthermore, all questions were answered to the best of my ability. A copy of this discharge summary will be sent to the above providers to facilitate continuity of care. Today, I personally spent 25 minutes on her case, of which greater than 50% of the time was spent in patient education, counseling, and coordination of care as described above. - Physical Exam General: Alert, In no apparent distress, Oriented x3 HEENT: Atraumatic, Sclerae nonicteric Respiratory: Clear to auscultation bilaterally, Normal air movement Cardiovascular: No edema, Regular rate/rhythm, No murmurs Gastrointestinal: Normal bowel sounds, Soft, Non-distended, No rebound, No guarding, No tenderness Integumentary: No rashes Neurological: Normal speech, Normal affect Vital Signs/Physical Exam: Temp Pulse Resp BP Pulse Ox 98.7 F 82 14 129/81 98 01/16/23 15:56 01/16/23 15:56 01/16/23 15:56 01/16/23 15:56 01/16/23 15:56 Laboratory Data at Discharge: WBC 10.80 thou/uL (4.3-10.9) 01/15/23 04:09 Hgb 10.1 g/dL (12.0-15.0) L 01/16/23 06:52 Hct 29.7 % (36.0-45.0) L 01/16/23 06:52 Plt Count 146 thou/uL (152-406) L 01/15/23 04:09 Sodium 139 mEq/L (136-145) 01/16/23 06:52 Potassium 3.5 mEq/L (3.5-5.1) 01/16/23 06:52 BUN 5 mg/dL (7-18) L 01/16/23 06:52 Creatinine 0.47 mg/dL (0.55-1.02) L 01/16/23 06:52 Glucose 99 mg/dL (74-106) 01/16/23 06:52 Phosphorus 3.4 mg/dL (2.5-4.9) 01/15/23 04:09 Magnesium 2.1 mg/dL (1.6-2.4) 01/15/23 04:09 Total Bilirubin 0.6 mg/dL (0.2-1.0) 01/13/23 15:00 AST 26 U/L (15-37) 01/13/23 15:00 ALT 25 U/L (13-56) 01/13/23 15:00 Alkaline Phosphatase 53 U/L (45-117) 01/13/23 15:00 Triglycerides 365 mg/dL (<150) H 01/14/23 06:01 Cholesterol 198 mg/dL (<200) 01/14/23 06:01 LDL Cholesterol Direct 61 mg/dL (100-129) L 01/13/23 18:08 HDL Cholesterol 43 mg/dL (40-60) 01/14/23 06:01 Cholesterol/HDL Ratio 4.60 01/14/23 06:01 Lipase 74 U/L (13-75) 01/14/23 06:01 Home Medications: Tamoxifen Citrate 20 mg PO 01/13/23 Fenofibrate [Tricor*] 160 mg PO DAILY #30 tab 01/16/23 Fish Oil/Dha/Epa [Fish Oil 1,200 mg Fish Oil] 1 each PO DAILY #30 01/16/23 New Medications: Fish Oil/Dha/Epa [Fish Oil 1,200 mg Fish Oil] 1 each PO DAILY #30 Fenofibrate [Tricor*] 160 mg PO DAILY #30 tab Physician Discharge Instructions: 1. Please call and schedule a follow-up appointment with your PCP in 3-5 days - Please have your PCP check your cholesterol/triglyceride and liver blood work in 1 month - If levels are good, please have PCP refill your fenofibrate 2. Please call and schedule a follow-up appointment with your Oncologist (Dr. Canseco) in 3-5 days - He has recommended that you stop taking tamoxifen until you see him in clinic 3. Please call and schedule a follow-up appointment with General Surgery (Dr. Clark) in 5-7 days Diet: AHA Activity: Ad landen Followup: Unknown,U [Primary Care Provider] - Juvencio Canseco MD [OUTSIDE PHYSICIAN] - Carl Clark MD [ACTIVE - CAN ADMIT] - Time spent managing pt's care (in minutes): 25
[2023-01-19 09:41] LABS: C.diff Antigen/Toxin Ag neg : Tox neg (NEG : NEG)
== END 2023-01-16 17:30 | disposition home or self-care (01) | DRG 439 ==
LOC: ER 14:18 → ERHOLD 17:27 → 3RD-ICU 20:22 → OBSVTOIN 01-14 16:16 → 2ND 01-15 09:57
PROVIDERS: ADMIT Internal Medicine; ATTEND Internal Medicine
DX: K85.90 Acute pancreatitis without necrosis or infection, unspecified (principal); R65.10 Systemic inflammatory response syndrome (SIRS) of non-infectious origin without acute organ dysfunction; C50.911 Malignant neoplasm of unspecified site of right female breast; E66.09 Other obesity due to excess calories; D72.829 Elevated white blood cell count, unspecified; Z90.13 Acquired absence of bilateral breasts and nipples; Z68.30 Body mass index [BMI] 30.0-30.9, adult; Z92.21 Personal history of antineoplastic chemotherapy
CPT/HCPCS: 36415; 71045; 76705; 78227; 80048; 80053; 80061; 81003; 81025; 82947; 83690; 83735; 84100; 85014; 85018; 85025; 87324; 96361; 96374; 96375; 99285; A9537; G0378; J1650; J1815; J2805; J3480; J7120; J7121